=== PATIENT | female | born 1945 | race Caucasian/White ===

== ENCOUNTER 2023-11-30 14:39 | Outpatient (REF) | payer MEDICARE, MEDICAID, SELFPAY ==
[2023-11-30 18:03] LABS: MANUAL DIFF FLAG NO
[2023-11-30 18:09] LABS: Basophils Absolute Auto 0.1 X10*3/uL (0.0-0.2); Basophils Percent Auto 0.7 % (0-2); Eosinophils Absolute Auto 0.2 X10*3/uL (0.0-0.4); Hematocrit 36.9 % (37.0-47.0); Hemoglobin 11.9 g/dl (12.0-16.0); Imm Gran Abs Auto 0.02 X10*3/uL (0.00-0.03); Imm Gran Pct Auto 0.3 % (0.0-0.4); Lymphocytes Absolute Auto 1.7 X10*3/uL (1.2-4.9); Lymphocytes Percent Auto 22.2 % (20-40); Mean Corpuscular HGB Conc 32.2 g/dl (31.0-35.0); Mean Corpuscular Hemoglobin 28.5 pg (27.0-33.0); Mean Corpuscular Volume 88.3 fL (80.0-98.0); Mean Platelet Volume 10.7 fL (9.4-12.3); Monocytes Absolute Auto 0.8 X10*3/uL (0.1-1.2); Monocytes Percent Auto 10.9 % (2-11); Neutrophils Absolute Auto 4.9 x10*3/uL (2.0-8.3); Neutrophils Percent Auto 63.9 % (45-73); Platelet Count 386 X10*3/uL (160-400); Red Blood Count 4.18 X10*6/uL (4.20-5.50); Red Cell Distribution Width 14.6 % (11.0-16.0); White Blood Count 7.6 X10*3/uL (4.8-10.8)
[2023-11-30 18:26] LABS: Alanine Aminotransferase 17 U/L (0-31); Albumin Level 4.3 g/dL (3.5-5.0); Alkaline Phosphatase 135 U/L (39-117); Anion Gap 14 (12-20); Aspartate Amino Transferase 25 U/L (5-31); Bilirubin Direct 0.1 mg/dL (0.0-0.5); Bilirubin Total 0.3 mg/dL (0.0-1.0); Blood Urea Nitrogen 24 mg/dL (9-16); Calcium 9.8 mg/dL (8.4-10.2); Carbon Dioxide 25 mmol/L (22-29); Chloride 106 mmol/L (96-108); Cholesterol 163 mg/dL (<200); Estimated Glomerular Filt Rate 42; Glucose Fasting 81 mg/dL (60-99); HDL Cholesterol 43 mg/dL (>40); LDL Cholesterol Calculated 86 mg/dL (<100); Potassium 3.9 mmol/L (3.3-5.1); Sodium 141 mmol/L (135-145); Total Protein 7.5 g/dL (6.5-8.0); Triglycerides 174 mg/dL (<150)
[2023-11-30 18:41] LABS: TSH reflex Free T4 0.04 uIU/mL (0.32-4.0); Vitamin D 25-OH Total 34.4 ng/mL (>30)
[2023-11-30 18:48] LABS: Erythrocyte Sedimentation Rate 38 MM/HR (0-20)
[2023-11-30 19:15] LABS: Free T4 (Free Thyroxine) 1.44 ng/dL (0.71-1.85)
[2023-11-30 19:58] LABS: Appearance Urine Clear; Color Urine Yellow; Glucose Urine UA Negative (Negative); Leukocyte Esterase Urine Trace (Negative); Nitrite Urine Negative (Negative); Specific Gravity - Urine 1.025 (1.005-1.025); UMIC TRIGGER UACC YES; Urine Blood Negative (Negative); Urine Ketones Trace mg/dL (Negative); Urine Protein Negative (Neg-Trace)
[2023-11-30 20:31] LABS: Creatinine Urine 236.71 mg/dL; Microalbum/Creatinine Ratio Ur 4.6 ug/mg cr (<30)
[2023-11-30 20:34] LABS: Bacteria Urine None Seen (None Seen); Hyaline Casts Urine 0-2 /LPF (0-2); RBC Urine 0-2 /HPF (0-2); WBC Urine 0-5 /HPF (0-5)
== END 2023-11-30 14:40 | disposition home or self-care (01) ==
LOC: HO.CHCLDS 14:39
PROVIDERS: Visit Provider Pediatrics
DX: E78.2 Mixed hyperlipidemia (principal); M85.80 Other specified disorders of bone density and structure, unspecified site
CPT/HCPCS: 36415; 80048; 80061; 80076; 81001; 81003; 82043; 82306; 82550; 82570; 84439; 84443; 85025; 85652

== ENCOUNTER 2024-10-08 14:51 | Outpatient (REF) | payer MEDICARE, MEDICAID, SELFPAY ==
[2024-10-08 18:26] LABS: Anion Gap 11 (12-20); Blood Urea Nitrogen 18 mg/dL (9-16); Calcium 9.3 mg/dL (8.4-10.2); Carbon Dioxide 23 mmol/L (22-29); Chloride 112 mmol/L (96-108); Estimated Glomerular Filt Rate 32; Glucose Random 75 mg/dL (60-115); Potassium 4.3 mmol/L (3.3-5.1); Sodium 142 mmol/L (135-145)
== END 2024-10-08 14:52 | disposition home or self-care (01) ==
LOC: HO.CHCLDS 14:51
PROVIDERS: Visit Provider Internal Medicine
DX: N17.9 Acute kidney failure, unspecified (principal)
CPT/HCPCS: 36415; 80048

== ENCOUNTER 2024-11-05 09:26 | Outpatient (REF) | payer MEDICARE, MEDICAID, SELFPAY ==
--- OUTSIDE RECORDS SUMMARY | 2024-11-05 10:18 | XMS_ITS | Encounter Summary ---
Author Organization [employer] Address [address] [facility] [address] [place] [address] Care Team Providers Care Shoulder Pad Molder Name Role Phone Jessica Gonzalez MD Primary Care Provider [phone] Reason for Visit * Reason Onset Date Comments Appointment Request 10/17/2024 Encounter Details Date Type Department Care Team (Late st Contact Info) Description 10/17/2024 Telephone [facility] [address] [place] [address] Jessica Gonzalez MD [address] [place], [place] [phone] Appointment Request Social History Tobacco Use Types Packs/Day Years Used Date Smoking Tobacco: Never Passive Smoke Exposure: Never Smokeless Tobacco: Never Depression Answer Date Recorded Patient Health Questionnaire-9 Score 0 10/08/2024 Patient Health Questionnaire-9 Score 0 10/08/2024 Last PHQ-9: Questionnaire Data Not on file 0 10/08/2024 Housing Stability Answer Date Recorded What is your housing situation today? I have israel martin 10/08/[address] you li ve. Do you have problems with any of the following? None of the above 10/08/2024 Food Insecurity Answer Date Recorded Within the past 12 months, y ou worried that your food would run out before you got money to buy more: Never True 10/08/2024 Within the past 12 months,th e food you bought just didn't last and you didn't have enough money to get more: Never True Transportation Answer Date Recorded In the past 12 months, has l ack of transportation kept you from medical appts, meetings, work or from getting things needed for daily living? No 10/08/2024 Utilities Answer Date Recorded In the past 12 months, has t he electric, gas, oil or water company threatened to shut off services in your home? No 10/08/2024 Depression Answer Date Recorded Patient Health Questionnaire-2 Score 0 10/08/2024 Internet Access Answer Date Recorded Internet Access Q1 Yes 10/08/2024 Internet Access Q2 Not on file 10/08/2024 Comments Unknown Sex and Gender Information Value Date Recorded Sex Assigned at Female 05/16/2022 10:18 AM EDT Legal Sex Female 10:18 AM EDT Gender Identity Female 05/16/2022 10:18 AM EDT Sexual Orientation Choose not to disclose 2021 10:18 AM EDT documented as of this encounter Miscellaneous Notes * Telephone Encounter - Ko Snowden - 10/17/2024 2:13 PM EDT TC from pt requesting a appt with PCP to discuss Ultra Sound done on her kidney. Contact pt at [phone] documented in this encounter Plan of Treatment Upcoming Encounters Date Type Department Care Team (Late st Contact Info) Description 12/19/2024 11:00 AM EDT Office Visit [facility]EDS [address] [place] [address] Jessica Gonzalez MD [address] [place] [address] documented as of this encounter Visit Diagnoses Not on filedocumented in this encounter Additional Health Concerns Assessment Noted Time PHQ-9 Depression Total Score: 0 10/09/19 2:16 PM EDT documented as of this encounter Care Teams Shoulder Pad Molder Relationship Specialty Start Date End Date Jessica Gonzalez MD [address] [place] [address] PCP - General Family Medicine 07/17/18 documented as of this encounter
--- OUTSIDE RECORDS SUMMARY | 2024-11-05 10:18 | XMS_ITS | Encounter Summary ---
Author Organization [employer] Address [address] [facility] [address] [place] [address] Care Team Providers Care Cnp Name Role Phone Jessica Gonzalez MD Primary Care Provider [phone] Encounter Details Date Type Department Care Team (Late st Contact Info) Description 10/16/2024 Orders Only [facility] [address] [place] [address] ProviderCesar MD Social History Tobacco Use Types Packs/Day Years [...] AM EDT documented as of this encounter Plan of Treatment Upcoming Encounters Date Type Department Care Team (Late st Contact Info) Description 12/19/2024 11:00 AM EDT Office Visit [facility] MED & PEDS [address] [place] [address] Jessica Gonzalez MD [address] [place] [address] documented as of this encounter Procedures Procedure Name Priority Date/Time Associated Diagnosis Comments US RETROPERITONEAL LIMITED Routine 10/15 9:20 AM EDT documented in this encounter Results * US RETROPERITONEAL LIMITED (10/15/2024 9:20 AM EDT) Anatomical Region Laterality Modality Abdomen Ultrasound us Historical Provider MD BARROSO US PROCEDURES Final R esult documented in this encounter Visit Diagnoses Not on filedocumented in this encounter Additional Health Concerns Assessment Noted Time PHQ-9 Depression Total Score: 0 10/09/19 25 2:16 PM EDT documented as of this encounter Care Teams Cnp Relationship Specialty Start Date End Date Jessica Gonzalez MD [address] [place] [address] PCP - General Family Medicine 07/17/18 documented as of this encounter
--- OUTSIDE RECORDS SUMMARY | 2024-11-05 10:19 | XMS_ITS | Encounter Summary ---
Author Organization [employer] Address [address] [place] [address] Care Team Providers Care Bakery Clerk Name Role Phone Jessica Gonzalez MD Primary Care Provider [phone] Reason for Visit * Reason Comments Med Refill Encounter Details Date Type Department Care Team ([facility] Contact Info) Description 06/11/2023 Refill [facility] MED & PEDS [address] [place] [address] Jessica Gonzalez MD [address] [place] [address] Mixed hyperlipidemia Social History Tobacco Use Types Packs/Day Years Used Date Smoking Tobacco: Never Smokeless Tobacco: Never Comments Unknown Sex and Gender Information Value Date Recorded Sex Assigned at Female 05/16/2022 10:18 AM EDT Legal Sex Female 10:18 AM EDT Gender Identity Female 05/16/2022 10:18 AM EDT Sexual Orientation Choose not to disclose 2021 10:18 AM EDT documented as of this encounter Plan of Treatment Upcoming Encounters Date Type Department Care Team (Late Contact Info) Description 12/19/2024 11:00 AM EDT Office Visit [facility] MED & PEDS [address] [place] [address] Jessica Gonzalez MD [address] [place] [address] documented as of this encounter Visit Diagnoses Diagnosis Mixed hyperlipidemia documented in this encounter Care Teams Bakery Clerk Relationship Specialty Start Date End Date Jessica Gonzalez MD [address] [place] [address] PCP - General Family Medicine 07/17/18 documented as of this encounter
--- OUTSIDE RECORDS SUMMARY | 2024-11-05 10:19 | XMS_ITS | Encounter Summary ---
Author Organization [employer] Address [address] [place] [address] Care Team Providers Care Cytotechnologist/Histotechnologist Name Role Phone Jessica Gonzalez MD Primary Care Provider [phone] Encounter Details Date Type Department Care Team (Late Contact Info) Description 09/27/2024 [facility] Only [facility] Information Management [address] [place], [place] [phone] Provider, MD Cesar Social History Tobacco Use Types Packs/Day Years Used Date Smoking Tobacco: Never Passive Smoke Exposure: Never Smokeless Tobacco: Never Depression Answer Date Recorded Patient Health Questionnaire-9 Score 1 11/30/2023 Patient Health Questionnaire-9 Score 1 11/30/2023 Last PHQ-9: Questionnaire Data Not on file 0 11/30/2023 Depression Answer Date Recorded Patient Health Questionnaire-2 Score 0 11/30/2023 Comments Unknown Sex and Gender Information Value [...] Description 12/19/2024 11:00 AM EDT Office Visit [facility] MED & PEDS [address] [place], [place] [phone] Jessica Gonzalez MD [address] [place], [place] [phone] documented as of this encounter Procedures Procedure Name Priority Date/Time Associated Diagnosis Comments TRANSTHORACIC ECHO (TTE) COMPLETE Routine 09/26/2024 1:37 PM EDT ECG 12-LEAD Routine 09/26/2024 1:15 PM EDT documented in this encounter Results * Transthoracic echo (TTE) complete (09/26/2024 1:37 PM EDT) Historical Provider CV ECHO PROCEDURES Final Result * ECG 12 lead (09/26/2024 1:15 PM EDT) Historical Provider ECG ORDERABLES Final Res ult documented in this encounter Visit Diagnoses Not on filedocumented in this encounter Additional Health Concerns Assessment Noted Time PHQ-9 Depression Total Score: 1 11/30/19 24 2:28 PM EDT documented as of this encounter Care Teams Cytotechnologist/Histotechnologist Relationship Specialty Start Date End Date Jessica Gonzalez MD [address] [place] [address] PCP - General Family Medicine 07/17/18 documented as of this encounter
--- OUTSIDE RECORDS SUMMARY | 2024-11-05 10:19 | XMS_ITS | Encounter Summary ---
Author Organization [employer] Address [address] [facility] [address], [place] [address] Care Team Providers Care Farm Management Agent Name Role Phone Jessica Gonzalez MD Primary Care Provider [phone] Reason for Referral * Imaging (Routine) - Closed Specialty Diagnoses / Procedures Referred By Contjanelle t Referred To Contact Radiology Diagnoses Decreased GFR Procedures US RENAL BI Julian Allen MD [address] [place] [address] Phone: tel: fax: [address] Phone: tel: fax: Referral ID Status Reason Start Date Expiration Date Visits Re quested Visits Authorized [id number] Closed 10/10/2024 10/10/2025 1 1 Encounter Details Date Type Department Care Team (Late st Contact Info) Description 10/10/2024 Orders Only [facility] MEDICINE [address] [place], [place] [phone] Julian Allen MD [address] [place], [place] [phone] Decreased GFR (Primary Dx) Social History Tobacco Use Types Packs/Day Years [...] Upcoming Encounters Date Type Department Care Team ([facility] Contact Info) Description 12/19/2024 11:00 AM EDT Office Visit [facility] MED & PEDS [address] [place] [address] Jessica Gonzalez MD [address] [place] [address] Scheduled Orders Name Type Priority Associated Diagnoses Orde r Schedule US RENAL BI Imaging Routine Decreased GFR Expected: 10/10/2024, Expires: 10/10/2025 Basic Metabolic Panel Lab Routine Decreased GFR Expected: 10/10/2024 (Approximate), Expires: 10/10/2025 documented as of this encounter Visit Diagnoses Diagnosis Decreased GFR- Primary documented in this encounter Additional Health Concerns Assessment Noted Time PHQ-9 Depression Total Score: 0 10/09/19 25 2:16 PM EDT documented as of this encounter Care Teams Farm Management Agent Relationship Specialty Start Date End Date Jessica Gonzalez MD [address] [place] [address] PCP - General Family Medicine 07/17/18 documented as of this encounter
--- OUTSIDE RECORDS SUMMARY | 2024-11-05 10:19 | XMS_ITS | Encounter Summary ---
Author Organization [employer] Address [address] [facility] [address], [place] [address] Care Team Providers Care Feed Mill Manager Name Role Phone Jessica Gonzalez MD Primary Care Provider [phone] Encounter Details Date Type Department Care Team (Late st Contact Info) Description 03/13/2023 Orders Only [facility] MED & PEDS [address] [place] [address] Lizabeth Armstrong LPN Social History Tobacco Use Types Packs/Day Years [...] 11:00 AM EDT Office Visit [facility] MED & PEDS [address] [place] [address] Jessica Gonzalez MD [address] [place] [address] documented as of this encounter Procedures Procedure Name Priority Date/Time Associated Diagnosis Comments URINALYSIS, COMPLETE, WITH REFLEX TO CULTURE Routine 11/30/2023 2:50 PM EDT T4, FREE Routine 11/30/2023 2:43 PM EDT documented in this encounter Results * (ABNORMAL) Urinalysis, Complete, with Reflex to Culture (11/30/2023 2:50 PM EDT) Color Urine Yellow [facility] Appearance Urine Clear [facility] PH 5.0 5.0 - 9.0 [facility] Glucose Urine UA Negative Negative mg/dL [facility] Urine Blood Negative Negative [facility] Specific Bartelso - Urine 1.025 1.005 - 1.025 [facility] Urine Protein Negative Neg-Trace mg/dL [facility] Urine Ketones Trace Negative mg/dL [facility] Nitrite Urine Negative Negative [facility] Leukocyte Esterase Urine Trace(A) Negative [facility] RBC Urine 0-2 0 - 2 /HPF [facility] Urine WBC 0-5 0 - 5 /HPF [facility] Urine Squamous Epithelial Cell 3-5 0 - 2 /HPF [facility] Urine Bacteria None Seen None Seen [facility] Hyaline Casts, Urine 0-2 0 - 2 /LPF [facility] 11/30/2023 2:50 PM EDT 11/30/2023 7:49 PM EDT Narrative [facility] - 11/30/2023 8:35 PM EDT [id number], Clean Catch Jessica Gonzalez MD LAB URINE ORDERABLES Final Re sult Performing Organization Address [facility]/ZIP Co de Phone Number [facility] [address] [place] [phone] * T4, Free (11/30/2023 2:43 PM EDT) Free T4 (Free Thyroxine) 1.44 0.71 - 1.85 ng/dL [facility] 11/30/2023 2:43 PM EDT 11/30/2023 5:58 PM EDT Jessica Gonzalez MD LAB BLOOD ORDERABLES Final Re sult [facility] [address] [place] [address] [phone] documented in this encounter Visit Diagnoses Not on filedocumented in this encounter Care Teams Feed Mill Manager Relationship Specialty Start Date End Date Jessica Gonzalez MD [address] [place] [phone] PCP - General Family Medicine 07/17/18 documented as of this encounter
--- OUTSIDE RECORDS SUMMARY | 2024-11-05 10:19 | XMS_ITS | Encounter Summary ---
Author Organization [employer] Address [address] [place] [address] Care Team Providers Care House Mover Helper Name Role Phone Jessica Gonzalez MD Primary Care Provider [phone] Encounter Details Date Type Department Care Team (Late Contact Info) Description 09/25/2024 [facility] Only [facility] Information Management [address] [place], [place] [phone] Provider, MD Cesar Social History Tobacco Use [...] Description 12/19/2024 11:00 AM EDT Office Visit [facility] MED & PEDS [address] [place], [place] [phone] Jessica Gonzalez MD [address] [place], [place] [phone] documented as of this encounter Procedures Procedure Name Priority Date/Time Associated Diagnosis Comments XR CHEST 2 VIEWS Routine 09/23/2024 12:44 PM EDT ECG 12-LEAD Routine 09/23/2024 11:02 AM EDT documented in this encounter Results * XR Chest 2 Views (09/23/2024 12:44 PM EDT) Anatomical Region Laterality Modality Chest Radiographic Lilliam ging us Historical Provider IMG XR PROCEDURES Final R esult * ECG 12 lead (09/23/2024 11:02 AM EDT) Historical Provider ECG ORDERABLES Final Res ult documented in this encounter Visit Diagnoses Not on filedocumented in this encounter Additional Health Concerns Assessment Noted Time PHQ-9 Depression Total Score: 1 11/30/19 24 2:28 PM EDT documented as of this encounter Care Teams House Mover Helper Relationship Specialty Start Date End Date Jessica Gonzalez MD [address] [place] [address] PCP - General Family Medicine 07/17/18 documented as of this encounter
--- OUTSIDE RECORDS SUMMARY | 2024-11-05 10:19 | XMS_ITS | Encounter Summary ---
Author Organization [employer] Address [address] [facility] [address] [place] [address] Care Team Providers Care Director Of Catering Sales Name Role Phone Jessica Gonzalez MD Primary Care Provider [phone] Reason for Visit * Reason Onset Date Comments Hospital Follow-up 09/30/2024 Encounter Details Date Type Department Care Team (Late st Contact Info) Description 09/30/[address] [facility] MEDICINE [address] [place] [address] Jessica Gonzalez MD [address] [place], [place] [phone] Hospital Follow-up Social History Tobacco Use Types Packs/Day Years [...] encounter Miscellaneous Notes * Telephone Encounter - Pino Louise - 09/30/2024 11:25 AM EDT Tc from pt requesting a HDF appt. Hospital: [facility] Date of admission: 09/25/2024 Discharge date: 09/28/2024 Diagnosed: Pneumonia *Send message to [facility] [place] Clinical Care Coordinators documented in this encounter Plan of Treatment Upcoming Encounters Date Type Department Care Team ([facility] st Contact Info) Description 12/19/2024 11:00 AM EDT Office Visit [facility] MED & PEDS [address] [place] [address] Jessica Gonzalez MD [address] [place] [address] documented as of this encounter Visit Diagnoses Not on filedocumented in this encounter Additional Health Concerns Assessment Noted Time PHQ-9 Depression Total Score: 1 11/30/19 24 2:28 PM EDT documented as of this encounter Care Teams Director Of Catering Sales Relationship Specialty Start Date End Date Jessica Gonzalez MD [address] [place] [address] PCP - General Family Medicine 07/17/18 documented as of this encounter
--- OUTSIDE RECORDS SUMMARY | 2024-11-05 10:19 | XMS_ITS | Clinical Summary ---
Author Organization [facility] Address [address] [phone] Phone Care Team Providers Care Power Transformer Repairer Name Role Phone Jessica Gonzalez MD Primary Care Provider Unav ailable Social History Tobacco Use Types Packs/Day Years Used Date Smoking Tobacco: Never Assessed Comments Unknown Sex and Gender Information Value Date Recorded Sex Assigned at Not on file Legal Sex Female 1:20 PM EDT Gender Identity Not on file Sexual Orientation Not on file Plan of Treatment Upcoming Encounters Date Type Department Care Team (Late st Contact Info) Description 12/20/2024 10:00 AM EDT Office Visit [facility] [address] [phone] Jarad Reina MD [address] [phone] Health Maintenance Due Date Last Done Comments Pneumococcal Vaccine: 50+ Years Completed 05/13/2015, 12/12/2012 Influenza Vaccine Completed 05/03/2024, , 06/04/2022, Additional history exists Hepatitis B Vaccine Aged Out No longe r eligible based on patient's age to complete this topic Insurance Medicare Medicaid [place] Care Teams Power Transformer Repairer Relationship Specialty Start Date End Date Jessica Gonzalez MD [address] [place] [phone] PCP - General Internal Medicine 10/28/24
--- OUTSIDE RECORDS SUMMARY | 2024-11-05 10:19 | XMS_ITS | Clinical Summary ---
Author Organization [facility] Address [address] [place] [address] Phone Care Team Providers Care Clinical Research Manager Name Role Phone Jessica Gonzalez MD Primary Care Provider [phone] Allergies Active Allergy Reactions Criticality Noted Date Comments Atorvastatin Hives Medium 09/24/2024 Medications aspirin 325 mg tablet Take 1 tablet (325 mg total) by mouth 1 (one) time each day. Active levothyroxine (SYNTHROID, LEVOTHROID) 75 mcg tablet Take 1 tablet (75 mcg total) by mouth 1 (one) time each day. 5 Active PARoxetine (PAXIL) 20 mg tablet Take 1 tablet (20 mg total) by mouth 1 (one) time each day. Active simvastatin (ZOCOR) 40 mg tablet Take 1 tablet (40 mg total) by mouth at bedtime. Active albuterol HFA (PROAIR HFA ; PROVENTIL HFA ; VENTOLIN HFA) 90 mcg/actuation inhaler Inhale 2 puffs by mouth every 6 (six) hours if needed for wheezing or shortness of breath. Active lisinopriL (PRINIVIL,ZESTR IL) 10 mg tablet Take 1 tablet (10 mg total) by mouth 1 (one) time each day. 30 each 5 Active acetaminophen (TYLENOL) 325 mg tablet Take 2 tablets (650 mg total) by mouth every 4 (four) hours if needed for mild pain, headaches or fever - temperature GREATER than 38 C (100.4 F) for up to 10 days. 30 tablet 5 10/09/19 25 Active Problems Problem Noted Date Diagnosed Date Pneumonia of right lung due to infectious organism, unspecified part of lung 09/24/2024 Encounters Date Type Department Care Team Description 10/15/2024 3:58 PM EDT - 10/15/2024 11:59 PM EDT Hospital Encounter Radiology Department - [address] [address] Abnormal results of kidney function studies Discharge Disposition: Home or Self Care 09/23/2024 7:28 PM EDT - 09/28/2024 12:48 PM EDT Hospital Encounter [facility] [address] [place] [phone] Aryan Martinez MD Rasul, Yar M, MD Pneumonia of right lung due to infectious organism, unspecified part of lung (Primary Dx); Acute hypoxic respiratory failure ([facility] V24, [facility] V28) Discharge Disposition: Home or Self Care from Last 3 Months Medical History Medical History Date Comments Hypercholesteremia Hypertension Hypothyroidism Osteopenia Asthma Family History Medical History Relation Name Comments Lung cancer Father Alzheimer's disease Mother Relation Name Status Comments Father Mother Social History Tobacco Use Types Packs/Day Years Used Date Smoking Tobacco: Former Cigarettes 1 41 1 [phone] - 2005 Smokeless Tobacco: Never Alcohol Use Standard Drinks/Week Comments Not Currently 0 (1 standard drink = 0.6 oz pur e alcohol) Interpersonal Safety Answer Date Record ed Physical Abuse 09/24/2024 Verbal Abuse 09/24/2024 Comments Unknown Sex and Gender Information Value Date Recorded Sex Assigned at Not on file Legal Sex Female 7:25 PM EDT Gender Identity Not on file Sexual Orientation Not on file Obstetrics History Last Filed Vital Signs Vital Sign Reading Time Taken Comments Blood Pressure 127/64 09/28/2024 7:33 AM EDT Pulse 51 09/28/2024 7:33 AM EDT Temperature 36.5 ??C (97.7 ??F) 09/28/2024 7:33 AM ED T Respiratory Rate 18 09/28/2024 7:33 AM EDT Oxygen Saturation 99% 09/28/2024 7:33 AM EDT Inhaled Oxygen Concentration - - Weight 60.3 kg (132 lb 15 oz) 09/26/2024 4:20 PM EDT Height 147.3 cm (4' 10 ) 09/26/2024 4:20 PM EDT Body Mass Index 27.78 09/26/2024 4:20 PM EDT Plan of Treatment Health Maintenance Due Date Last Done Comments Zoster Vaccines (2 of 2) 06/13/2019 04/18/2019, 12/15 DTaP,Tdap,and Td Vaccines (3 - Td or Tdap) 02/26/2022 02/27/2012, 12/31/2000 COVID-19 Vaccine (4 - season) 2024 06/30/2023, 09/16/2020, 08/26/2020 Hepatitis C Screening 09/24/2024 Medicare Annual Wellness Visit 09/24/2024 Osteoporosis Screening (Bone Density Screening) 09/24/2024 Social Influencers of Health Screening 09/24/2024 Falls Risk Assessment 09/28/2025 09/28/2024 Depression Screening 10/08/2025 10/08/2024 Hypertension/CHF/CAD Annual BMP Blood Test 10/08/2025 10/08/2024, 09/28/2024, 09/27/2024, Additional history exists Cholesterol Screening (Lipid Panel) 11/29/2028 11/30/2023 Pneumococcal Vaccine: 50+ Years Completed 05/13/2015, 12/12/2012 Influenza Vaccine Completed 05/03/2024, , 06/04/2022, Additional history exists RSV Immunization Adult Patients Completed 05/03/2024 HIB Vaccines Aged Out No longer eligi ble based on patient's age to complete this topic HPV Vaccines Aged Out No longer eligi ble based on patient's age to complete this topic Hepatitis A Vaccines Aged Out No long er eligible based on patient's age to complete this topic Hepatitis B Vaccines Aged Out No long er eligible based on patient's age to complete this topic IPV Vaccines Aged Out No longer eligi ble based on patient's age to complete this topic MMR Vaccines Aged Out No longer eligi ble based on patient's age to complete this topic Meningococcal ACWY Vaccine Aged Out N o longer eligible based on patient's age to complete this topic Meningococcal B Vaccine Aged Out No l onger eligible based on patient's age to complete this topic RSV Immunization Patients Under 20 months Aged Out No longer eligible based on patient's age to complete this topic Varicella Vaccines Aged Out No longer eligible based on patient's age to complete this topic Procedures Procedure Name Priority Date/Time Associated Diagnosis Comments US RETROPERITONEAL LIMITED Routine 10/15/2024 4:34 PM EDT Abnormal results of kidney function studies ECG ANNOTATED 09/30/2024 LAVENDER - EDTA Routine 09/28/2024 5:49 AM EDT EXTRA TUBES Routine 09/28/2024 5:49 AM EDT MAGNESIUM Routine 09/28/2024 5:49 AM EDT BASIC METABOLIC PANEL Timed 09/28/2024 5:49 AM EDT CBC WITH AUTO DIFFERENTIAL Timed 09/27/2024 5:49 AM EDT BASIC METABOLIC PANEL Timed 09/27/2024 5:49 AM EDT CBC AND DIFFERENTIAL Timed 09/27/2024 5:49 AM EDT TRANSTHORACIC ECHOCARDIOGRAM (TTE) COMPLETE W/ CONTRAST Routine 09/26/2024 4:20 PM EDT Pneumonia of right lung due to infectious organism, unspecified part of lung ECG 12-LEAD Routine 09/26/2024 1:06 PM EDT PHOSPHORUS Add-On 09/26/2024 5:45 AM EDT MAGNESIUM Add-On 09/26/2024 5:45 AM EDT CBC WITH AUTO DIFFERENTIAL Timed 09/26/2024 5:45 AM EDT BASIC METABOLIC PANEL Timed 09/26/2024 5:45 AM EDT CBC AND DIFFERENTIAL Timed 09/26/2024 5:45 AM EDT PEP THERAPY Routine 09/25/2024 1:58 PM EDT CULTURE SPUTUM Routine 09/24/2024 7:54 AM EDT C-REACTIVE PROTEIN Add-On 09/24/2024 4: 56 AM EDT BASIC METABOLIC PANEL Routine 09/24/2024 4:56 AM EDT CBC WITH AUTO DIFFERENTIAL Routine 09/24/2024 4:55 AM EDT CBC AND DIFFERENTIAL Routine 09/24/2024 4:55 AM EDT PEP THERAPY Routine 09/24/2024 3:11 AM EDT CULTURE BLOOD STAT 09/23/2024 11:20 PM EDT LACTATE, WITH REFLEX STAT 09/23/2024 10:44 PM EDT CULTURE BLOOD STAT 09/23/2024 10:44 PM EDT XR CHEST 2 VIEWS STAT 09/23/2024 8:56 PM EDT RESPIRATORY VIRUS PANEL MOLECULAR STUDY STAT 09/23/2024 8:23 PM EDT CBC WITH AUTO DIFFERENTIAL STAT 09/23/2024 8:06 PM EDT BASIC METABOLIC PANEL STAT 09/23/2024 8:06 PM EDT CBC AND DIFFERENTIAL STAT 09/23/2024 8:06 PM EDT ECG 12-LEAD STAT 09/23/2024 7:44 PM EDT from Last 3 Months Results * US Retroperitoneal Limited (10/15/2024 4:34 PM EDT) Anatomical Region Laterality Modality Body Ultrasound 10/15/2024 4:47 PM EDT Impressions 10/15/2024 4:49 PM EDT Tiny echogenic nonshadowing focus in the right kidney which may represent an angiomyolipoma. Bladder is unable to be evaluated due to underdistention. -------- FINAL REPORT -------- Dictated By: Ivy Baires Dictated Date: 10/15/2024 16:47 ET Assigned Physician: Ivy Baires Reviewed and Electronically Signed By: Ivy Baires Signed Date: 10/15/2024 16:49 ET Workstation ID: [id number] Transcribed By: Self Edit Transcribed Date: 10/15/2024 16:47 ET Narrative 10/15/2024 4:49 PM EDT US RETROPERITONEAL LIMITED HISTORY: Decreased GFR. Prior study: None. FINDINGS: ??The right kidney measures 8.9 cm in length. The left kidney measures 9.6 cm in length. ??Both kidneys demonstrate normal echotexture. ??No hydronephrosis, masses, calculi, or perinephric collections are seen. There is a 0.5 x 0.4 x 0.5 cm echogenic nonshadowing focus in the cortex of the midpole the right kidney. The bladder is suboptimally distended. Normal ureteral jet was visualized in the right side of the bladder. No ureteral jet was visualized on the left side. Procedure Note Ivy Baires MD - 10/15/2024 US RETROPERITONEAL LIMITED HISTORY: Decreased GFR. Prior study: None. FINDINGS: The right kidney measures 8.9 cm in length. The left kidneymeasures 9.6 cm in length. Both kidneys demonstrate normal echotexture.No hydronephrosis, masses, calculi, or perinephric collections are seen. There is a 0.5 x 0.4 x 0.5 cm echogenic nonshadowing focus in the cortexof the midpole the right kidney. The bladder is suboptimally distended. Normal ureteral jet was visualizedin the right side of the bladder. No ureteral jet was visualized on theleft side. IMPRESSION: Tiny echogenic nonshadowing focus in the right kidney which may representan angiomyolipoma. Bladder is unable to be evaluated due to underdistention. -------- FINAL REPORT -------- Dictated By: Ivy Baires Dictated Date: 10/15/2024 16:47 ET Assigned Physician: Ivy Baires Reviewed and Electronically Signed By: Ivy Baires Signed Date: 10/15/2024 16:49 ET Workstation ID: [id number] Transcribed By: Self Edit Transcribed Date: 10/15/2024 16:47 ET us Julian Allen MD IMG US PROCEDURES Final R esult * ECG-Annotated (09/30/2024) us Provider Onbase ECG ORDERABLES Final Result * Lavender tube (09/28/2024 5:49 AM EDT) Extra Tube Hold for add-ons. 09/28/2024 8:01 AM EDT [facility] Comment:Auto resulted. Blood Venous blood specimen / Unknown Venipuncture / Unknown 09/28/2024 5:49 AM EDT 09/28/2024 6:03 AM EDT Tu Douglas MD LAB BLOOD ORDERABLES Final Resul t Performing Organization Address City/[facility]/ZIP Co de Phone Number [facility] [address] [place] [address], [place] [phone] * Magnesium (09/28/2024 5:49 AM EDT) Only the most recent of2 resultswithin the time period is included. Pathologist [facility] Magnesium 2.2 1.9 - 2.6 mg/dL LAB CHEMISTRY METHOD 09/28/2024 6:41 AM EDT [facility] Blood Venous blood specimen / Unknown Venipuncture / Unknown 09/28/2024 5:49 AM EDT 09/28/2024 6:02 AM EDT Tu Douglas MD LAB BLOOD ORDERABLES Final Resul t Performing Organization Address City/[facility]/ZIP Co de Phone Number [facility] [address] [place] [address], [place] [phone] * (ABNORMAL) Basic metabolic panel (09/28/2024 5:49 AM EDT) Only the most recent of5 resultswithin the time period is included. Sodium 144 133 - 145 mmol/L LAB CHEMISTRY METHOD 09/28/2024 6:41 AM [facility] Potassium 3.7 3.5 - 5.5 mmol/L LAB CHEMISTRY METHOD 09/28/2024 6:41 AM [facility] Chloride 113(H) 96 - 110 mmol/L LAB CHEMISTRY METHOD 09/28/2024 6:41 AM [facility] CO2 23 21 - 32 mmol/L LAB CHEMISTRY METHOD 09/28/2024 6:41 AM [facility] Anion Gap 8 3 - 11 LAB CHEMISTRY METHOD 09/28/2024 6:41 AM [facility] Glucose 93 70 - 100 mg/dL LAB CHEMISTRY METHOD 09/28/2024 6:41 AM [facility] BUN 22 5 - 25 mg/dL LAB CHEMISTRY METHOD 09/28/2024 6:41 AM [facility] Creatinine 1.03 0.50 - 1.10 mg/dL LAB CHEMISTRY METHOD 09/28/2024 6:41 AM [facility] eGFR 55(L) >=60 mL/min/1. 73m2 LAB CHEMISTRY METHOD 09/28/2024 6:41 AM [facility] Comment:Calculation based on the??Chronic Kidney Disease Epidemiology Collaboration (CKD-EPI) equation refit??without adjustment for race. BUN/Creatinine Ratio 21.4 LAB CHEMISTRY METHOD 09/28/2024 6:41 AM [facility] Calcium 8.5 8.5 - 10.5 mg/dL LAB CHEMISTRY METHOD 09/28/2024 6:41 AM [facility] Blood Venous blood specimen / Unknown Venipuncture / Unknown 09/28/2024 5:49 AM EDT 09/28/2024 6:02 AM EDT us Tu Douglas MD LAB BLOOD ORDERABLES Final Resul t [facility] [address] [place] [address], * (ABNORMAL) CBC auto differential (09/27/2024 5:49 AM EDT) Only the most recent of4 resultswithin the time period is included. WBC 7.8 4.8 - 10.8 K/mcL LAB HEMETOLOGY METHOD 09/27/2024 6:33 AM EDT [facility] RBC 3.90 3.80 - 4.80 M/mcL LAB HEMETOLOGY METHOD 09/27/2024 6:33 AM EDT [facility] Hemoglobin 11.0(L) 11.5 - 16.0 g/dL LAB HEMETOLOGY METHOD 09/27/2024 6:33 AM [facility] Hematocrit 34.0(L) 35.0 - 47.0 % LAB HEMETOLOGY METHOD 09/27/2024 6:33 AM [facility] MCV 88.3 79.0 - 98.0 FL LAB HEMETOLOGY METHOD 09/27/2024 6:33 AM EDT [facility] MCH 28.6 27.0 - 32.0 pcg LAB HEMETOLOGY METHOD 09/27/2024 6:33 [facility] MCHC 32.4 32.0 - 37.0 g/dL LAB HEMETOLOGY METHOD 09/27/2024 6:33 AM [facility] RDW 12.9 11.0 - 15.0 % LAB HEMETOLOGY METHOD 09/27/2024 6:33 AM EDT [facility] Platelets 409(H) 130 - 400 K/mcL LAB HEMETOLOGY METHOD 09/27/2024 6:33 [facility] MPV 9.3 7.0 - 11.0 FL LAB HEMETOLOGY METHOD 09/27/2024 6:33 AM [facility] NRBC 0.0 <1.0 % LAB HEMETOLOGY METHOD 09/27/2024 6:33 AM [facility] NRBC Absolute 0.00 <0.10 K/mcL LAB HEMETOLOGY METHOD 09/27/2024 6:33 AM [facility] Neutrophils Relative 69.8 % LAB HEMETOLOGY METHOD 09/27/2024 6:33 AM [facility] Lymphocytes Relative 19.9 % LAB HEMETOLOGY METHOD 09/27/2024 6:33 AM [facility] Monocytes Relative 8.3 % LAB HEMETOLOGY METHOD 09/27/2024 6:33 AM [facility] Eosinophils Relative 0.0 % LAB HEMETOLOGY METHOD 09/27/2024 6:33 AM [facility] Basophils Relative 0.5 % LAB HEMETOLOGY METHOD 09/27/2024 6:33 AM [facility] Immature Granulocytes Relative 1.5 % LAB HEMETOLOGY METHOD 09/27/2024 6:33 AM [facility] Neutrophils Absolute 5.41 1.50 - 7.00 K/mcL LAB HEMETOLOGY METHOD 09/27/2024 6:33 AM [facility] Lymphocytes Absolute 1.54 1.00 - 5.00 K/mcL LAB HEMETOLOGY METHOD 09/27/2024 6:33 AM [facility] Monocytes Absolute 0.64 0.20 - 1.00 K/mcL LAB HEMETOLOGY METHOD 09/27/2024 6:33 AM [facility] Eosinophils Absolute 0.00 0.00 - 0.50 K/mcL LAB HEMETOLOGY METHOD 09/27/2024 6:33 AM EDT [facility] Basophils Absolute 0.04 0.00 - 0.20 K/mcL LAB HEMETOLOGY METHOD 09/27/2024 6:33 AM EDT [facility] Immature Granulocytes Absolute 0.12(H) 0.00 - 0.03 K/mcL LAB HEMETOLOGY METHOD 09/27/2024 6:33 AM EDT [facility] Blood Venous blood specimen / Unknown Venipuncture / Unknown 09/27/2024 5:49 AM EDT 09/27/2024 6:23 AM EDT us Tu Douglas MD LAB BLOOD ORDERABLES Final Resul t Performing Organization Address City/State/[facility] Co de Phone Number [facility] [address] [place] [address], [place] [phone] * TRANSTHORACIC ECHOCARDIOGRAM (TTE) COMPLETE W/ CONTRAST (09/26/2024 4:20 PM EDT) LV EDV (A2C) 87 mL CV PACS LV EDV (A4C) 84 mL CV PACS LV Diastolic Volume (BP) 87 46 - 106 mL CV PACS LV ESV (A2C) 31 mL CV PACS LV ESV (A4C) 29 mL CV PACS LV Systolic Volume (BP) 31 14 - 42 mL CV PACS IVSD 0.8 0.6 - 0.9 cm CV PACS LVIDD 4.2 3.8 - 5.2 cm CV PACS LVIDS 2.8 2.2 - 3.5 cm CV PACS LVOT Diameter 2.1 cm CV PACS LVOT Mean Jeff 0.6 m/s CV PACS LVOT Mean Grad 2 mmHg CV PACS LVOT Peak VTI 24.9 cm CV PACS LVOT Peak Jeff 0.9 m/s CV PACS LVOT Peak Gradient 3 mmHg CV PACS LVPWD 0.9 0.6 - 0.9 cm CV PACS MV E' Tissue Velocity Lateral 10 cm/s CV PACS MV E' Tissue Velocity Septal 8 cm/s CV PACS Ejection Fraction (A2C) 65 % CV PACS Ejection Fraction (A4C) 65 % CV PACS Ejection Fraction (BP) 64 % CV PACS LVOT Area 3.5 cm2 CV PACS LVOT Stroke Volume 86 mL CV PACS Left Atrium Minor Davidson 5.1 cm CV PACS Left Atrium Major Davidson 5.1 cm CV PACS LA Area Sys (A2C) 19 cm2 CV PACS LA Area Sys (A4C) 18 cm2 CV PACS LA Volume (BP) 53 mL CV PACS RA Area 11.4 cm2 CV PACS RA 2D Volume 25 mL CV PACS Aortic Sinus Valsalva 2.7 cm CV PACS Ascending Aorta 3.3 cm CV PACS E Wave Deceleration Time 162 119 - 242 ms CV PACS MV Peak A Jeff 0.80 m/s CV PACS MV Peak E Jeff 0.97 m/s CV PACS PV Acceleration Time 99 ms CV PACS RV Diastolic Basal Dimension 3.8 2.5 - 4.1 cm CV PACS RV S' 10 cm/s CV PACS RV Free Wall Longitudinal Strain -30 % CV PACS TAPSE 21 mm CV PACS TR Peak Velocity 2.63 m/s CV PACS TR Peak Gradient 28 mmHg CV PACS LV ESV Index (A4C) 19 mL/m2 CV PACS LV EDV Index (A4C) 55 mL/m2 CV PACS E/E' Ratio Septal 12 CV PACS E/E' Ratio Averaged 11 CV PACS LVOT Stroke Index 56 mL/m2 CV PACS Relative Wall Thickness ratio 0.43 CV PACS FS 33 % CV PACS LV Mass 2D 110 g CV PACS Ascending Aorta Index 2.16 cm/m2 CV PACS LVOT flow 208 mL/s CV PACS RA 2D Volume Index 16 mL/m2 CV PACS LVIDD Index 2.75 cm/m2 CV PACS LVIDS Index 1.83 cm/m2 CV PACS E/A Ratio 1.2 CV PACS E/E' Ratio Lateral 10 CV PACS LV Systolic Volume Index (BP) 20 mL/m2 CV PACS LV Diastolic Volume Index (BP) 57 mL/m2 CV PACS LA Volume Index (BP) 35 mL/m2 CV PACS LV Mass Index 2D 72 g/m2 CV PACS LV EDV Index (A2C) 57 mL/m2 CV PACS LV ESV Index (A2C) 20 mL/m2 CV PACS BSA 1.57 m2 CV PACS Right Ventricular Peak Systolic Pressure 31 mmHg CV PACS Est. RA Pressure 3 mmHg CV PACS Anatomical Region Laterality Modality Ultrasound Narrative 09/26/2024 4:47 PM EDT ?Normal biventricular size and systolic function. ??Normal left ventricular regional wall motion with an ejection fraction of 60 to 65%. ?No hemodynamically significant valve disease. ??Minor valvular abnormalities as detailed below. ?Mild left atrial enlargement. ?Normal left ventricular diastolic function. ??Normal pulmonary artery systolic pressure. Left Ventricle Left ventricle cavity size is normal. Wall thickness is normal. Systolic function is normal with an ejection fraction of 60-65%. There are no regional LV wall motion abnormalities. There is no diastolic dysfunction and normal left atrial pressure. Right Ventricle Right ventricle cavity appears normal. Systolic function is normal. Left Atrium Left atrium cavity is mildly dilated. Right Atrium Right atrium cavity is normal. IVC/SVC Inferior vena cava structure is normal. Mitral Valve The leaflets are mildly thickened. There is mild annular calcification. There is mild regurgitation. There is no evidence of mitral valve stenosis. Tricuspid Valve The leaflets exhibit normal excursion. There is mild regurgitation. There is no evidence of tricuspid valve stenosis. Estimated RA pressure is 3 mmHg. The RVSP is estimated at 31 mmHg. Aortic Valve The aortic valve is trileaflet. The leaflets are mildly thickened and exhibit normal excursion. There is no regurgitation or stenosis. Pulmonic Valve Visualized portions of the pulmonic valve appear normal. There is no regurgitation or stenosis. Ascending Aorta The aorta appears normal in size. Pericardium Pericardium appears normal. There is no pericardial effusion. Study Details Overall the study quality was technically difficult. Definity contrast was given to enhance imaging. us Tu Douglas MD CV ECHO PROCEDURES Final Result * ECG 12 lead (09/26/2024 1:06 PM EDT) Only the most recent of2 resultswithin the time period is included. [facility] Ventricular Rate ECG 52 BPM GEMUSE Atrial Rate 52 BPM GEMUSE P-R Interval 144 ms GEMUSE QRS Duration 86 ms GEMUSE Q-T Interval 462 ms GEMUSE QTc 429 ms GEMUSE P Wave Davidson 34 degrees GEMUSE R Davidson 0 degrees GEMUSE T Davidson 18 degrees GEMUSE ECG Interpretation Sinus bradycardia Low voltage QRS Borderline ECG When compared with ECG of 23-SEP-2024 19:44, No significant change was found Confirmed by MD Jasmeet, [place] ([id number]) on 09/26/2024 10:44:45 PM GEMUSE 09/26/2024 1:06 PM EDT 09/26/2024 10:44 PM EDT us Tu Douglas MD ECG ORDERABLES Final Result Performing Organization Address [facility] de Phone Number GEMUSE * Phosphorus (09/26/2024 5:45 AM EDT) [facility] Phosphorus 2.7 2.5 - 4.5 mg/dL LAB CHEMISTRY METHOD 09/26/2024 10:41 AM EDT [facility] Blood Venous blood specimen / Unknown Venipuncture / Unknown 09/26/2024 5:45 AM EDT 09/26/2024 6:16 AM EDT us Tu Douglas MD LAB BLOOD ORDERABLES Final Resul t Performing Organization Address [facility] Co de Phone Number [facility] [address] [place] [address], [place] [phone] * (ABNORMAL) Culture sputum (09/24/2024 7:54 AM EDT) [facility] Culture, Sputum No pathogens isolated. 09/27/2024 8:03 AM EDT [facility] Gram Stain Result <25 WBCs, <25 Epithelials - Acceptable for Culture(A) 09/27/2024 8:03 AM EDT [facility] Gram Stain Result Few Polymorphonuclear leukocytes(A) 09/27/2024 8:03 AM EDT [facility] Gram Stain Result No Epithelial cells(A) 09/27/2024 8:03 AM EDT [facility] Gram Stain Result Few Gram positive bacilli(A) 09/27/2024 8:03 AM EDT [facility] Gram Stain Result Rare Gram positive cocci in pairs(A) 09/27/2024 8:03 AM EDT [facility] Sputum, expectorated Tracheal structure / Unknown 09/24/2024 7:54 AM EDT 09/24/2024 8:11 AM EDT Aryan Martinez MD LAB MICROBIOLOGY - GENERAL ORDERABLES Final Result Performing Organization Address City/[facility]/ZIP Co de Phone Number [facility] [address] [place] [address], [place] [phone] * (ABNORMAL) C-reactive protein (09/24/2024 4:56 AM EDT) [facility] C-Reactive Protein 11.20(H) <=0.50 mg/dL LAB CHEMISTRY METHOD 09/24/2024 9:02 AM EDT [facility] Blood Venous blood specimen / Unknown Venipuncture / Unknown 09/24/2024 4:56 AM EDT 09/24/2024 5:12 AM EDT Tu Douglas MD LAB BLOOD ORDERABLES Final Resul t [facility] [address] [place] [address], [place] [phone] * Blood Culture, Peripheral Draw #1 (09/23/2024 11:20 PM EDT) Only the most recent of2 resultswithin the time period is included. Culture, Blood No growth at 5 days 09/29/2024 12:01 AM EDT [facility] Blood Venous blood specimen / Unknown Venipuncture / Unknown 09/23/2024 11:20 PM EDT 09/23/2024 11:32 PM EDT Jessica COVARRUBIAS LAB MICROBIOLOGY - GENERAL OR DERABLES Final Result Performing Organization Address [facility] Co de Phone Number [facility] [address] [place] [address], [place] [phone] * Lactate, with reflex (09/23/2024 10:44 PM EDT) [facility] LACTIC ACID 2.0 0.4 - 2.0 mmol/L LAB CHEMISTRY METHOD 09/23/2024 11:12 PM EDT [facility] Blood Venous blood specimen / Unknown Venipuncture / Unknown 09/23/2024 10:44 PM EDT 09/23/2024 10:49 PM EDT Jessica COVARRUBIAS LAB BLOOD ORDERABLES Final Re sult Performing Organization Address [facility] de Phone Number [facility] [address] [place] [address], [place] [phone] * XR Chest 2 Views (09/23/2024 8:56 PM EDT) Anatomical Region Laterality Modality Body Radiographic Lilliam ging 09/24/2024 7:53 AM EDT Impressions 09/24/2024 7:55 AM EDT Double density in the lower mediastinum could be related to hiatal hernia. Diffuse reticular prominence. Subsegmental linear opacities in the lower lung on each side could represent fibrosis or atelectasis. I doubt acute focal pneumonia. -------- FINAL REPORT -------- Dictated By: Hernesto Rcie Dictated Date: 09/24/2024 07:53 ET Assigned Physician: Hernesto Rice Reviewed and Electronically Signed By: Hernesto Rice Signed Date: 09/24/2024 07:55 ET Workstation ID: [id number] Transcribed By: Self Edit Transcribed Date: 09/24/2024 07:53 ET Narrative 09/24/2024 7:55 AM EDT EXAMINATION: CHEST CLINICAL INFORMATION: Dyspnea COMPARISON: None. TECHNIQUE: 2 views of the chest FINDINGS: Calcified tortuous aorta. Smooth density in the lower mediastinum could be related to a hernia. Devices overlie the patient. There is no hilar mass. There is no alveolar edema. Scattered nonspecific reticular opacities. There are linear opacities in the posterior lower lung on each side. Biapical thickening without pneumothorax or underlying bone destruction. There are osteophytes in the spine Procedure Note Hernesto Rice MD - 09/24/2024 EXAMINATION: CHEST CLINICAL INFORMATION: Dyspnea COMPARISON: None. TECHNIQUE: 2 views of the chest FINDINGS: Calcified tortuous aorta. Smooth density in the lower mediastinum could berelated to a hernia. Devices overlie the patient. There is no hilar mass.There is no alveolar edema. Scattered nonspecific reticular opacities. There are linear opacities inthe posterior lower lung on each side. Biapical thickening without pneumothorax or underlying bone destruction. There are osteophytes in the spine IMPRESSION: Double density in the lower mediastinum could be related to hiatalhernia. Diffuse reticular prominence. Subsegmental linear opacities in the lower lung on each side couldrepresent fibrosis or atelectasis. I doubt acute focal pneumonia. -------- FINAL REPORT -------- Dictated By: Hernesto Rice Dictated Date: 09/24/2024 07:53 ET Assigned Physician: Hernesto Rice Reviewed and Electronically Signed By: Hernesto Rice Signed Date: 09/24/2024 07:55 ET Workstation ID: [id number] Transcribed By: Self Edit Transcribed Date: 09/24/2024 07:53 ET us Aryan Martinez MD IMG XR PROCEDURES Final Res ult * (ABNORMAL) Respiratory virus panel molecular study (09/23/2024 8:23 PM EDT) Adenovirus Detection by PCR Not Detected Not Detected LAB MICROBIOLOGY METHOD 09/23/2024 9:32 PM EDT [facility] Influenza A PCR Not Detected Not Detected LAB MICROBIOLOGY METHOD 09/23/2024 9:32 PM EDT [facility] Influenza B PCR Not Detected Not Detected LAB MICROBIOLOGY METHOD 09/23/2024 9:32 PM EDT [facility] Coronavirus 229E Not Detected Not Detected LAB MICROBIOLOGY METHOD 09/23/2024 9:32 PM EDT [facility] Coronavirus HKU1 Not Detected Not Detected LAB MICROBIOLOGY METHOD 09/23/2024 9:32 PM EDT [facility] Coronavirus OC43 Not Detected Not Detected LAB MICROBIOLOGY METHOD 09/23/2024 9:32 PM EDT [facility] Coronavirus NL63 Not Detected Not Detected LAB MICROBIOLOGY METHOD 09/23/2024 9:32 PM EDT [facility] Parainfluenza Virus 1 Not Detected Not Detected LAB MICROBIOLOGY METHOD 09/23/2024 9:32 PM EDT [facility] Parainfluenza Virus 2 Not Detected Not Detected LAB MICROBIOLOGY METHOD 09/23/2024 9:32 PM EDT [facility] Parainfluenza Virus 3 Not Detected Not Detected LAB MICROBIOLOGY METHOD 09/23/2024 9:32 PM EDT [facility] Parainfluenza Virus 4 Not Detected Not Detected LAB MICROBIOLOGY METHOD 09/23/2024 9:32 PM EDT [facility] RSV PCR Not Detected Not Detected LAB MICROBIOLOGY METHOD 09/23/2024 9:32 PM EDT [facility] Human Metapneumovirus A and B Not Detected Not Detected LAB MICROBIOLOGY METHOD 09/23/2024 9:32 PM EDT [facility] Rhinovirus/Entero virus Detected(A ) Not Detected LAB MICROBIOLOGY METHOD 09/23/2024 9:32 PM EDT [facility] Bordetella pertussis Not Detected Not Detected LAB MICROBIOLOGY METHOD 09/23/2024 9:32 PM EDT [facility] Bordetella parapertussis Not Detected Not Detected LAB MICROBIOLOGY METHOD 09/23/2024 9:32 PM EDT [facility] Mycoplasma pneumo by PCR Not Detected Not Detected LAB MICROBIOLOGY METHOD 09/23/2024 9:32 PM EDT [facility] Chlamydia pneumoniae Not Detected Not Detected LAB MICROBIOLOGY METHOD 09/23/2024 9:32 PM EDT [facility] SARS COV-2 Not Detected Not Detected LAB MICROBIOLOGY METHOD 09/23/2024 9:32 PM EDT [facility] Swab Both anterior nares / Unknown Non-blood Collection / Unknown 09/23/2024 8:23 PM EDT 09/23/2024 8:38 PM EDT Narrative [facility] - 09/23/2024 9:32 PM EDT Testing was performed using the [employer] Respiratory Pathogen PCR Assay. All results must be correlated with the clinical findings. Results should not be used as the sole basis for diagnosis. False Negative results may occur from the presence of sequence variants in the region targeted by the assay or the presence of inhibitors. Results may be affected by concurrent antiviral/antimicrobial therapy or levels of organisms that are below the limit of detection. 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 Do not modify or discontinue any currently active code status orders. Healthcare Agents on File Name Relationship Healthcare Agent Relationshi p Communication Ashley Lord Daughter Health Care Agent Care Teams Clinical Research Manager Relationship Specialty Start Date End Date Jessica Gonzalez MD [address] [place] [phone] PCP - General Internal Medicine 09/23/24
--- OUTSIDE RECORDS SUMMARY | 2024-11-05 10:19 | XMS_ITS | Clinical Summary ---
Author Organization [employer] Address [address] [facility] [address] [place] [address] Care Team Providers Care Policy Loan Calculator Name Role Phone Jessica Gonzalez MD Primary Care Provider [phone] Allergies Active Allergy Reactions Criticality Noted Date Comments Atorvastatin Hives Medium 09/24/2024 Medications cholecalciferol (Vitamin D-3) 50 MCG (1999 UT) capsule Take 1 capsule by mouth every 12 (twelve) hours. 10/06/19 17 Active simvastatin (Zocor) 40 MG tabletIndications :Mixed hyperlipidemia TAKE 1 TABLET BY MOUTH EVERYDAY AT BEDTIME 90 tablet 05/28/20 24 Active PARoxetine (Paxil) 20 MG tablet TAKE 1 TABLET BY MOUTH EVERY DAY 90 tablet 2 08/15/19 25 Active levothyroxine (Synthroid, Levoxyl) 75 MCG tablet TAKE 1 TABLET BY MOUTH EVERY DAY 90 tablet 1 08/16/19 25 Active lisinopril 5 MG tabletIndications :Benign essential hypertension Take 1 tablet (5 mg) by mouth Once per day. 30 tablet 11 10/09/19 25 026 Active aspirin (Tavia Aspirin) 325 MG tablet Take 1 tablet (325 mg) by mouth Once per day. 90 tablet 3 10/25/19 25 Active aspirin (Tavia Aspirin) 325 MG tablet Take 1 tablet by mouth. 025 Discontinued(R eorder (will not trigger notification to Pharmacy)) ibuprofen 600 MG tablet Take 1 tablet (600 mg) by mouth every 6 (six) hours if needed for mild pain for up to 7 days 28 tablet 11/25/19 23 025 Discontinued lisinopril 10 MG tablet Take 1 tablet by mouth Once per day. 025 Discontinued Active Problems Problem Noted Date Diagnosed Date Melanocytic nevus of skin 12/13/2017 Adjustment disorder with depressed mood in remsunday kate 05/13/2015 Benign essential hypertension 05/13/2015 Dyslipidemia 05/13/2015 Acquired hypothyroidism 12/22/2011 Anxiety 12/22/2011 Cerebrovascular accident 12/22/2011 Tobacco dependence syndrome 12/22/2011 Encounters Date Type Department Care Team Description 10/24/2024 3:20 PM EDT Office Visit [facility] [address] [place] [address] Jessica Gonzalez MD Benign essential hypertension (Primary Dx); Dietary counseling; Exercise counseling; Acquired hypothyroidism; Cerebrovascular accident (CVA), unspecified mechanism (CMS/HCC); Dyslipidemia; Adjustment disorder with depressed mood in remission; CRF (chronic renal failure), unspecified stage; 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 Travel 10/21/2024 Telephone [facility] [address] [place] [address] Jessica Gonzalez MD 10/17/2024 Telephone [facility] [address] [place] [phone] Jessica Gonzalez MD Appointment Request 10/16/2024 Telephone [facility] [address] [place] [address] Julian Allen MD bp log 10/16/2024 Orders Only [facility] [address] [place] [address] Cesar Shen MD 10/10/2024 Telephone [facility] [address] [place] [address] Julian Allen MD Results 10/10/2024 Orders Only [facility] [address] [place] [phone] Julian Allen MD Decreased GFR (Primary Dx) 10/08/2024 2:15 PM EDT Office Visit [facility] [address] [place] [address] Julian lAlen MD Benign essential hypertension (Primary Dx); Hypotension due to hypovolemia; ROZINA (acute kidney injury) (CMS/HCC); Pneumonia due to infectious organism, unspecified laterality, unspecified part of lung 10/08/2024 Travel 10/07/2024 Telephone [facility] [address] [place] [address] Jessica Gonzalez MD Chart Prep 09/30/2024 Patient Outreach [facility] [address] [place] [address] Jessica Gonzalez MD Pre-visit Planning (HDF scheduled. ) 09/30/2024 Telephone [facility] [address] [place] [address] Jessica Gonzalez MD Hospital Follow-up 09/27/2024 Orders Only [facility] [address] [place] [address] Cesar Shen MD 09/25/2024 Orders Only [facility] [address] [place] [phone] Cesar Shen MD 08/14/2024 Refill [facility] [address], [place] [phone] MachadoLenny Matta MD 08/14/2024 Refill [facility] [address], [place] [phone] Jessica Gonzalez MD from Last 3 Months Immunizations Name Administration Dates Next Due Influenza Quadrivalent Adjuvanted 06/30/2023,,06/25/2021 Influenza injectable quadriv alent IIV4 with preservative 04/26/2017,04/26/2016,05/13/2015 Influenza, High Dose Seasona l, Preservative Free 05/03/2024,04/18/2019,04/05/2018 Influenza, IIV3, injectable 04/11/2014 Influenza, Split (incl. emily fied surface antigen) 04/12/2013,05/03/2012 Pneumococcal Conjugate PCV 13 05/13/2015 Pneumococcal Polysaccharide PPSV23 12/12/2012 RSV Adjuvant 05/03/2024 Td (adult), unspecified 12/31/2000 Tdap 02/27/2012 Zoster, Recombinant 04/18/2019 Zoster, live 12/25/2012 Social History Tobacco Use Types Packs/Day Years Used Date Smoking Tobacco: Never Passive Smoke Exposure: Never Smokeless Tobacco: Never Tobacco Cessation:Counseling Given: Not Answered Depression Answer Date Recorded Patient Health Questionnaire-9 [...] not to disclose 2021 10:18 AM EDT Last Filed Vital Signs Vital Sign Reading Time Taken Comments Blood Pressure 130/80 10/24/2024 3:53 PM EDT Pulse 60 10/24/2024 3:40 PM EDT Temperature 36.4 ??C (97.5 ??F) 10/24/2024 3:40 PM ED T Respiratory Rate 16 10/24/2024 3:40 PM EDT Oxygen Saturation 98% 10/24/2024 3:40 PM EDT Inhaled Oxygen Concentration - - Weight 62.1 kg (137 lb) 10/24/2024 3:40 PM EDT Height 149.9 cm (4' 11 ) 10/24/2024 3:40 PM EDT Body Mass Index 27.67 10/24/2024 3:40 PM EDT Plan of Treatment Upcoming Encounters Date Type Department Care Team (Late st Contact Info) Description 12/19/2024 11:00 AM EDT Office Visit [facility] [address] [place] [address] Jessica Gonzalez MD [address] [place] [address] Health Maintenance Due Date Last Done Comments Dental Oral Exam 1945 Dental Prophylaxis 1945 Dental X-Ray: Bitewings 1945 Dental X-Ray: Full Mouth 1945 Hepatitis C Screening 1963 Zoster Vaccines (3 of 3) 06/13/2019 04/18/2019, 12/15 DTaP/Tdap/Td Vaccines (2 - Td or Tdap) 02/26/2022 02/27/2012, 12/31/2000 COVID-19 Vaccine (4 - season) 2024 06/30/2023, 09/16/2020, 08/26/2020 Tobacco Screening 12/31/2024 01/01/2024 Alcohol/Substance Use Screening 10/08/2025 10/08/2024 Depression Screening 10/08/2025 10/08/2024, 10/09/19 SDOH Screening 10/08/2025 10/08/2024 Lipid Panel 11/29/2028 11/30/2023 Pneumococcal Vaccine: 50+ Years Completed 05/13/2015, 12/12/2012 Influenza Vaccine Completed 05/03/2024, , 06/04/2022, Additional history exists RSV Patients and Patients Aged 60 years or older Completed 05/03/2024 HIB Vaccines Aged Out No [...] patient's age to complete this topic Meningococcal Vaccine Aged Out No elvia santos eligible based on patient's age to complete this topic RSV under 20 months Aged Out No longe r eligible based on patient's age to complete this topic Rotavirus Vaccines Aged Out No longer eligible based on patient's age to complete this topic Procedures Procedure Name Priority Date/Time Associated Diagnosis Comments US RETROPERITONEAL LIMITED Routine 10/15/2024 9:20 AM EDT BASIC METABOLIC PANEL Routine 10/08/2024 2:52 PM EDT ROZINA (acute kidney injury) (CMS/HCC) TRANSTHORACIC ECHO (TTE) COMPLETE Routine 09/26/2024 1:37 PM EDT ECG 12-LEAD Routine 09/26/2024 1:15 PM EDT XR CHEST 2 VIEWS Routine 09/23/2024 12:4 4 PM EDT ECG 12-LEAD Routine 09/23/2024 11:02 AM EDT LIPID PANEL, STANDARD Routine 11/30/2023 2:43 PM EDT Mixed hyperlipidemia from Last 3 Months or Most Recently Relevant to Health Maintenance Results * US RETROPERITONEAL LIMITED (10/15/2024 9:20 AM EDT) Anatomical Region Laterality Modality Abdomen Ultrasound us Historical Provider MD BARROSO US PROCEDURES Final R esult * (ABNORMAL) Basic Metabolic Panel (10/08/2024 2:52 PM EDT) Sodium 142 135 - 145 mmol/L [facility] Potassium 4.3 3.3 - 5.1 mmol/L [facility] Chloride 112(H) 96 - 108 mmol/L [facility] Carbon Dioxide 23 22 - 29 mmol/L [facility] Anion Gap 11(L) 12 - 20 [facility] Urea Nitrogen (BUN) 18(H) 9 - 16 mg/dL [facility] Creatinine, Serum 1.56(H) 0.5 - 1.4 mg/dL [facility] Estimated Glomerular Filt Rate 32 [facility] Comment:Chronic Kidney Disea se: Estimated GFR < 60 mL/min/1.94b2Nfelcv Kidney Disease: Estimated GFR < 15 mL/min/1.73m2 Glucose 75 60 - 115 mg/dL [facility] Calcium 9.3 8.4 - 10.2 mg/dL [facility] Blood Venous blood specimen / Unknown 10/08/2024 2:52 PM EDT 10/08/2024 6:08 PM EDT Result [facility] Julian Allen MD LAB BLOOD ORDERABLES Final Result [facility] [address] [place] [phone] * Transthoracic echo (TTE) complete (09/26/2024 1:37 PM EDT) Result [facility] Historical Provider CV ECHO PROCEDURES Final Result * ECG 12 lead (09/26/2024 1:15 PM EDT) Only the most recent of2 resultswithin the time period is included. Result [facility] Historical Provider ECG ORDERABLES Final Res ult * XR Chest 2 Views (09/23/2024 12:44 PM EDT) Anatomical Region Laterality Modality Chest Radiographic Lilliam ging Result [facility] Historical Provider IMG XR PROCEDURES Final R esult * (ABNORMAL) Lipid Panel, Standard (11/30/2023 2:43 PM EDT) Triglycerides 174(H) <150 mg/dL [facility] Comment:Desirable Triglyceri de: less than 150 mg/dLBorderline High Triglyceride 150-199 mg/dLHigh Triglyceride: 200-499 mg/dLVery High Triglyceride: greater than or equal to 5OO mg/dL Cholesterol 163 <200 mg/dL [facility] Comment:Desirable Cholestero l: less than 200 mg/dLBorderline High Cholesterol: 200-239 mg/dLHigh Cholesterol: greater than 239 mg/dL LDL Cholesterol Calculated 86 <100 mg/dL [facility] Comment:Desirable LDL: less than 100 mg/dLNear Optimal/Above Optimal LDL: 110- 129 mg/dLBorderline High LDL: 130-159 mg/dLHigh LDL: 160-189 mg/dLVery High LDL: greater than or equal to 190 mg/dL HDL Cholesterol 43 >40 mg/dL [facility] Comment:Desirable HDL: great er than 40 mg/dL Note: This HDL assay may give artificially low results in patients with liver disease. Blood Venous blood specimen / Unknown 11/30/2023 2:43 PM EDT 11/30/2023 5:58 PM EDT us Jessica Gonzalez MD LAB BLOOD ORDERABLES Final Re sult [facility] [address] [place] [phone] [phone] from Last 3 Months or Most Recently Relevant to Health Maintenance Insurance MEDICARE Member Subscriber Plan / Payer (Ef fective 2023-Present) Name:Maria Eugenia Zimmerman Member ID:[id number] Relation to Subscriber:Self Name:Maria Eugenia Zimmerman Subscriber ID:[id number] Payer ID:STATE Group ID:Not on file Type:Medicare Address: [facility] [address] [place] [address] [facility] MEDICAID STAND ADULT Care Teams Policy Loan Calculator Relationship Specialty Start Date End Date Jessica Gonzalez MD [address] [place] [phone] PCP - General Family Medicine 07/17/18
== END 2024-11-05 09:27 | disposition home or self-care (01) ==
LOC: HO.CHCLDS 09:26
PROVIDERS: Visit Provider Pediatrics
DX: E03.9 Hypothyroidism, unspecified (principal)
CPT/HCPCS: 36415; 84443

== ENCOUNTER 2024-12-27 10:29 | Outpatient (REF) | payer MEDICARE, MEDICAID, SELFPAY ==
--- OUTSIDE RECORDS SUMMARY | 2024-12-27 11:33 | XMS_ITS | Encounter Summary ---
Author Organization [employer] Address [address] [facility] [address] [place] [address] Care Team Providers Care Medical Staffing Coordinator Name Role Phone Jessica Gonzalez MD Primary Care Provider [phone] Encounter Details Date Type Department Care Team (Late st Contact Info) Description 10/16/2024 Orders Only [facility] [address] [place] [address] Provider, MD Cesar Social History Tobacco Use [...] Care Team (Late st Contact Info) Description 02/05/2025 10:15 AM EDT Office Visit [facility] [address] [place] [address] Jessica Gonzalez MD [address] [place] [address] documented as of this encounter Procedures Procedure [...] documented as of this encounter Care Teams Medical Staffing Coordinator Relationship Specialty Start Date End Date Jessica Gonzalez MD [address] [place] [address] PCP - General Family Medicine 07/17/18 documented as of this encounter
[2024-12-30 10:39] LABS: Kappa Light Chain, Free Serum 28.8 mg/L (3.3-19.4); Kappa/Lambda Lt Ch Free Ratio 1.16 (0.26-1.65); Lambda Light Chain, Free Serum 24.9 mg/L (5.7-26.3)
[2024-12-31 15:38] LABS: IgA 155 mg/dL (70-320); IgG 847 mg/dL (600-1540); IgM 110 mg/dL (50-300)
== END 2024-12-27 10:30 | disposition home or self-care (01) ==
LOC: HO.LAB 10:29
PROVIDERS: PCP Pediatrics; Visit Provider Internal Medicine
DX: N18.31 Chronic kidney disease, stage 3a (principal)
CPT/HCPCS: 36415; 82784; 83521; 86334

== ENCOUNTER 2025-02-05 11:15 | Outpatient (REF) | payer MEDICARE, MEDICAID, SELFPAY ==
--- OUTSIDE RECORDS SUMMARY | 2025-02-05 12:18 | XMS_ITS | Clinical Summary ---
Author Organization [facility] Address [address] [facility] [address] [place] [phone] Phone Care Team Providers Care Proofer Prepress Name Role Phone Jessica Gonzalez MD Primary Care Provider Unav ailable Allergies Active Allergy Reactions Criticality Noted Date Comments Atorvastatin Hives Medium 09/24/2024 Medications albuterol HFA (PROVENTIL HFA;VENTOLIN HFA) 108 (90 Base) MCG/ACT inhaler Inhale 2 puffs every 6 hours as needed Active aspirin 325 MG tablet Take 325 mg by mouth in the morning. 10/24/2024 Active Cholecalciferol 50 MCG (2000 UT) capsule Take 1 capsule by mouth in the morning and 1 capsule in the evening. 10/05/2016 Active levothyroxine (SYNTHROID, LEVOTHROID) 75 MCG tablet Take 75 mcg by mouth in the morning. 08/16/2024 Active lisinopril 2.5 MG tablet Take 2.5 mg by mouth in the morning. 09/28/2024 Active PARoxetine (PAXIL) 20 MG tablet Take 20 mg by mouth in the morning. Active simvastatin (ZOCOR) 40 MG tablet Take 40 mg by mouth 1 (one) time each day in the evening 11/12/2024 Active Active Problems Problem Noted Date Diagnosed Date Pneumonia 09/24/2024 Melanocytic nevus of skin 12/13/2017 Adjustment disorder with depressed mood in remis kate 05/13/2015 Benign essential hypertension 05/13/2015 Dyslipidemia 05/13/2015 Acquired hypothyroidism 12/22/2011 Anxiety 12/22/2011 Cerebrovascular accident 12/22/2011 Tobacco dependence syndrome 12/22/2011 Encounters Date Type Department Care Team Description 12/20/2024 10:00 AM EDT Office Visit [facility] [address] [place] [phone] Jarad Reina MD Stage 3a chronic kidney disease (HCC) (Primary Dx) from Last 3 Months Family History Medical History Relation Comments Lung cancer Father Alzheimer's disease Mother Relation Status Comments Father Mother Social History Tobacco Use Types Packs/Day Years Used Date Smoking Tobacco: Former Cigarettes Smokeless Tobacco: Former Tobacco Cessation:Counseling Given: Yes Alcohol Use Standard Drinks/Week Comments Never 0 (1 standard drink = 0.6 oz pur e alcohol) Comments Unknown Sex and Gender Information Value Date Recorded Sex Assigned at Not on file Legal Sex Female 1:20 PM EDT Gender Identity Not on file Sexual Orientation Not on file Last Filed Vital Signs Vital Sign Reading Time Taken Comments Blood Pressure 120/72 12/20/2024 10:00 AM EDT Pulse 63 12/20/2024 10:00 AM EDT Temperature - - Respiratory Rate - - Oxygen Saturation 96% 12/20/2024 10: 00 AM EDT Inhaled Oxygen Concentration - - Weight 61.6 kg (135 lb 12.8 oz) 025 10:00 AM EDT Height - - Body Mass Index - - Plan of Treatment Upcoming Encounters Date Type Department Care Team (Late st Contact Info) Description 04/01/2025 4:00 PM EDT [facility] [address] [phone] Jarad Reina MD [facility] [address] [phone] Health Maintenance Due Date Last Done Comments Influenza Vaccine (#1) 2025 4, 06/30/2023, 06/04/2022, Additional history exists Pneumococcal Vaccine: 50+ Years Completed 05/13/2015, 12/12/2012 Hepatitis B Vaccine Aged Out No longe r eligible based on patient's age to complete this topic Insurance Medicare Medicaid [place] Care Teams Proofer Prepress Relationship Specialty Start Date End Date Jessica Gonzalez MD [address] [place] [phone] PCP - General Internal Medicine 10/28/24
--- OUTSIDE RECORDS SUMMARY | 2025-02-05 12:18 | XMS_ITS | Clinical Summary ---
Author Organization [facility] Address [address] [place] [address] Phone Care Team Providers Care Organ Recovery Coordinator Name Role Phone Jessica Gonzalez MD Primary Care Provider [phone] Allergies Active Allergy Reactions Criticality Noted Date [...] time each day. 30 each 5 Active Active Problems Problem Noted Date Diagnosed Date Pneumonia of right lung due to infectious organism, unspecified part of lung 09/24/2024 Medical History Medical History Date Comments Hypercholesteremia [...] 51 09/28/2024 7:33 AM EDT Temperature 36.5 C (97.7 F) 09/28/2024 7:33 AM EDT Respiratory Rate 18 09/28/2024 7:33 AM EDT Oxygen Saturation 99% 09/28/2024 7:33 AM EDT Inhaled Oxygen Concentration - - Weight 60.3 kg (132 lb 15 oz) 09/26/2024 4:20 PM EDT Height 147.3 cm (4' 10 ) 09/26/2024 4:20 PM EDT Body Mass Index 27.78 09/26/2024 4:20 PM EDT Plan of Treatment Health Maintenance Due Date Last Done Comments Zoster Vaccines (3 of 3) 06/13/2019 04/18/2019, 12/15 DTaP,Tdap,and Td Vaccines (3 - Td or Tdap) 02/26/2022 02/27/2012, 12/31/2000 COVID-19 Vaccine ( season) 2024 06/30/2023, 09/16/2020, 08/26/2020 Depression Screening 07/17/2024 Hepatitis C Screening 09/24/2024 Medicare Annual Wellness Visit 09/24/2024 Osteoporosis Screening (Bone Density Screening) 09/24/2024 Social Influencers of Health Screening 09/24/2024 Influenza Vaccine (#1) 2025 , 06/30/2023, 06/04/2022, Additional history exists Falls Risk Assessment 09/28/2025 09/28/2024 Hypertension/CHF/CAD Annual BMP Blood Test 10/08/2025 10/08/2024, 09/28/2024, 09/27/2024, Additional history exists Cholesterol Screening (Lipid Panel) 11/29/2028 11/30/2023 Pneumococcal Vaccine: 50+ Years Completed 05/13/2015, 12/12/2012 RSV Immunization Adult Patients Completed 05/03/2024 HIB [...] Procedure Name Priority Date/Time Associated Diagnosis Comments BASIC METABOLIC PANEL Timed 09/28/2024 5:49 AM EDT from Last 3 Months or Most Recently Relevant to Health Maintenance Results * (ABNORMAL) Basic metabolic panel (09/28/2024 5:49 AM EDT) Sodium 144 133 - 145 mmol/L LAB CHEMISTRY METHOD 09/28/2024 6:41 AM EDT [facility] Potassium 3.7 3.5 - 5.5 mmol/L LAB CHEMISTRY METHOD 09/28/2024 6:41 AM [facility] Chloride 113(H) 96 - 110 mmol/L LAB CHEMISTRY METHOD 09/28/2024 6:41 AM [facility] CO2 23 21 - 32 mmol/L LAB CHEMISTRY METHOD 09/28/2024 6:41 AM [facility] Anion Gap 8 3 - 11 LAB CHEMISTRY METHOD 09/28/2024 6:41 AM EDT [facility] Glucose 93 70 - 100 mg/dL LAB CHEMISTRY METHOD 09/28/2024 6:41 AM EDT [facility] BUN 22 5 - 25 mg/dL LAB CHEMISTRY METHOD 09/28/2024 6:41 AM T [facility] Creatinine 1.03 0.50 - 1.10 mg/dL LAB CHEMISTRY METHOD 09/28/2024 6:41 AM EDT [facility] eGFR 55(L) >=60 mL/min/1. 73m2 LAB CHEMISTRY METHOD 09/28/2024 6:41 AM EDT [facility] Comment:Calculation based on the Chronic Kidney Disease Epidemiology Collaboration (CKD-EPI) equation refit without adjustment for race. 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
--- OUTSIDE RECORDS SUMMARY | 2025-02-05 12:18 | XMS_ITS | Encounter Summary ---
Author Organization [employer] Address [address] [facility] [address] [place] [address] Care Team Providers Care Medical Transcription Name Role Phone Jessica Gonzalez MD Primary Care Provider [phone] Encounter Details Date Type Department Care Team (Late st Contact Info) Description 10/16/2024 Orders Only [facility] [address] [place] [address] Provider, MD Cesar Social History Tobacco Use [...] as of this encounter Plan of Treatment Not on file documented as of this encounter Procedures Procedure [...] as of this encounter Care Teams Medical Transcription Relationship Specialty Start Date End Date Jessica Gonzalez MD [address] [place] [phone] PCP - General Family Medicine 07/17/18 documented as of this encounter
[2025-02-05 14:17] LABS: MANUAL DIFF FLAG NO
[2025-02-05 14:19] LABS: Hematocrit 33.6 % (37.0-47.0); Hemoglobin 10.3 g/dl (12.0-16.0); Imm Gran Abs Auto 0.01 X10*3/uL (0.00-0.03); Imm Gran Pct Auto 0.2 % (0.0-0.4); Lymphocytes Absolute Auto 1.2 X10*3/uL (1.2-4.9); Mean Corpuscular HGB Conc 30.7 g/dl (31.0-35.0); Mean Corpuscular Hemoglobin 25.1 pg (27.0-33.0); Mean Corpuscular Volume 82.0 fL (80.0-98.0); NRBC Abs Auto 0.000 X10*3/uL (0.0-0.012); NRBC Pct Auto 0.0 /100WBC (0.0-0.2); Platelet Count 341 X10*3/uL (160-400); Red Blood Count 4.10 X10*6/uL (4.20-5.50); White Blood Count 6.1 X10*3/uL (4.8-10.8)
[2025-02-05 14:31] LABS: Uric Acid 6.1 mg/dL (2.4-5.7)
[2025-02-05 15:10] LABS: Folate 8.4 ng/mL (> or = 4.0); Vitamin B12 302 pg/mL (200-900)
[2025-02-06 06:48] LABS: Lyme Abs Screen <0.90 index
== END 2025-02-05 11:16 | disposition home or self-care (01) ==
LOC: HO.CHCLDS 11:15
PROVIDERS: Visit Provider Pediatrics
DX: I12.9 Hypertensive chronic kidney disease with stage 1 through stage 4 chronic kidney disease, or unspecified chronic kidney disease (principal); N18.9 Chronic kidney disease, unspecified; M25.562 Pain in left knee; G89.29 Other chronic pain
CPT/HCPCS: 36415; 82607; 82746; 84550; 85025; 85652; 86140; 86431; 86617; 86618

== ENCOUNTER 2025-03-31 15:29 | Outpatient (REF) | payer MEDICARE, MEDICAID, SELFPAY ==
[2025-03-31 15:57] LABS: MANUAL DIFF FLAG NO
[2025-03-31 16:11] LABS: Hematocrit 34.8 % (37.0-47.0); Hemoglobin 11.0 g/dl (12.0-16.0); Imm Gran Abs Auto 0.03 X10*3/uL (0.00-0.03); Imm Gran Pct Auto 0.4 % (0.0-0.4); Lymphocytes Absolute Auto 1.5 X10*3/uL (1.2-4.9); Mean Corpuscular HGB Conc 31.6 g/dl (31.0-35.0); Mean Corpuscular Hemoglobin 26.6 pg (27.0-33.0); Mean Corpuscular Volume 84.1 fL (80.0-98.0); NRBC Abs Auto 0.000 X10*3/uL (0.0-0.012); NRBC Pct Auto 0.0 /100WBC (0.0-0.2); Platelet Count 299 X10*3/uL (160-400); Red Blood Count 4.14 X10*6/uL (4.20-5.50); White Blood Count 8.4 X10*3/uL (4.8-10.8)
[2025-03-31 16:55] LABS: Anion Gap 11 (12-20); Blood Urea Nitrogen 23 mg/dL (9-16); Calcium 9.3 mg/dL (8.4-10.2); Carbon Dioxide 25 mmol/L (22-29); Chloride 112 mmol/L (96-108); Estimated Glomerular Filt Rate 42; Magnesium 2.2 mg/dL (1.6-2.6); Potassium 4.0 mmol/L (3.3-5.1); Sodium 144 mmol/L (135-145); Uric Acid 6.0 mg/dL (2.4-5.7)
[2025-03-31 17:35] LABS: Appearance Urine Clear; Glucose Urine UA Negative (Negative); PH 5.5 (5.0-9.0); Specific Gravity - Urine >= 1.030 (1.005-1.025)
[2025-03-31 18:30] LABS: Microalbum/Creatinine Ratio Ur 5.6 ug/mg cr (<30); Protein/Creatinine Ratio, Ur 0.05 (<0.2); Total Protein Urine Random 14 mg/dL (<12)
--- OUTSIDE RECORDS SUMMARY | 2025-03-31 20:54 | XMS_ITS | Encounter Summary ---
Author Organization [employer] Address [address] [facility] [address] [place] [address] Care Team Providers Care Drafter Structural Name Role Phone Jessica Gonzalez MD Primary Care Provider Reason for Visit * Reason Onset Date Comments Hospital Follow-up 09/30/2024 Encounter Details Date Type Department Care Team (Late st Contact Info) Description 09/30/2024 Telephone [facility] [address] [place] [address] Jessica Gonzalez MD [address] [place], [place] [phone] Hospital Follow-up Social History Tobacco Use Types [...] from pt requesting a HDF appt. Hospital: [facility] Date of admission: 09/25/2024 Discharge date: 09/28/2024 Diagnosed: Pneumonia *Send message to [place] Clinical Care Coordinators documented in this encounter Plan of Treatment Not on file documented as of this encounter Visit Diagnoses Not on filedocumented in this encounter Additional Health Concerns Assessment Noted Time PHQ-9 Depression Total Score: 1 11/30/19 24 2:28 PM EDT documented as of this encounter Care Teams Drafter Structural Relationship Specialty Start Date End Date Jessica Gonzalez MD [address] [place] [phone] PCP - General Family Medicine 07/17/18 documented as of this encounter
--- OUTSIDE RECORDS SUMMARY | 2025-03-31 20:54 | XMS_ITS | Encounter Summary ---
Author Organization [employer] Address [address] [facility] [address] [place] [address] Care Team Providers Care Die Cleaner Name Role Phone Jessica Gonzalez MD Primary Care Provider [phone] Encounter Details Date Type Department Care Team (Late st Contact Info) Description 09/27/2024 Orders Only [facility] [email or web address] Information Management [address] [place] [address] Provider, Cesar, Social History Tobacco Use Types Packs/Day Years [...] ECG 12 lead (09/26/2024 1:15 PM EDT) us Historical Provider ECG ORDERABLES Final Res ult documented in this encounter Visit Diagnoses Not on filedocumented in this encounter Additional Health Concerns Assessment Noted Time PHQ-9 Depression Total Score: 1 11/30/19 24 2:28 PM EDT documented as of this encounter Care Teams Die Cleaner Relationship Specialty Start Date End Date Jessica Gonzalez MD [address] [place] [phone] PCP - General Family Medicine 07/17/18 documented as of this encounter
--- OUTSIDE RECORDS SUMMARY | 2025-03-31 20:54 | XMS_ITS | Encounter Summary ---
Author Organization [employer] Address [address] [facility] [address] [place] [address] Care Team Providers Care Union Representative Name Role Phone Jessica Gonzalez MD Primary Care Provider [phone] Encounter Details Date Type Department Care Team (Late st Contact Info) Description 09/25/2024 Orders Only [facility] Information Management [address] [place] [address] Provider, Cesar, Social History Tobacco Use Types [...] Region Laterality Modality Chest Radiographic Lilliam ging Historical Provider MD BARROSO XR PROCEDURES Final R esult * ECG 12 lead (09/23/2024 11:02 AM EDT) us Historical Provider ECG ORDERABLES Final Res ult documented in this encounter Visit Diagnoses Not on filedocumented in this encounter Additional Health Concerns Assessment Noted Time PHQ-9 Depression Total Score: 1 11/30/19 24 2:28 PM EDT documented as of this encounter Care Teams Union Representative Relationship Specialty Start Date End Date Jessica Gonzalez MD [address] [place] [phone] PCP - General Family Medicine 07/17/18 documented as of this encounter
--- OUTSIDE RECORDS SUMMARY | 2025-03-31 20:54 | XMS_ITS | Clinical Summary ---
Author Organization [employer] Address [address] [facility] [address] [place] [address] Care Team Providers Care Hydraulic Technician Name Role Phone Jessica Gonzalez MD Primary Care Provider [phone] Allergies Active Allergy Reactions Criticality Noted Date Comments Atorvastatin Hives Medium 09/24/2024 Medications cholecalciferol (Vitamin D-3) 50 MCG (1999 UT) capsule Take 1 capsule by mouth every 12 (twelve) hours. 7 Active PARoxetine (Paxil) 20 MG tablet TAKE 1 TABLET BY MOUTH EVERY DAY 90 tablet 2 5 Active lisinopril 5 MG tabletIndications:B enign essential hypertension Take 1 tablet (5 mg) by mouth Once per day. 30 tablet 11 5 10/09/19 26 Active aspirin (Tavia Aspirin) 325 MG tablet Take 1 tablet (325 mg) by mouth Once per day. 90 tablet 3 5 Active levothyroxine (Synthroid, Levoxyl) 75 MCG tablet TAKE 1 TABLET BY MOUTH EVERY DAY 90 tablet 1 5 Active simvastatin (Zocor) 40 MG tabletIndications:M ixed hyperlipidemia TAKE 1 TABLET BY MOUTH EVERYDAY AT BEDTIME 90 tablet 5 Active Active Problems Problem Noted Date Diagnosed Date Melanocytic nevus of skin 12/13/2017 Adjustment disorder with depressed mood in remis kate 05/13/2015 Benign essential hypertension 05/13/2015 Dyslipidemia 05/13/2015 Acquired hypothyroidism 12/22/2011 Anxiety 12/22/2011 Cerebrovascular accident 12/22/2011 Tobacco dependence syndrome 12/22/2011 Encounters Date Type Department Care Team Description 03/09/2025 Refill [facility] [address] [place] [address] Jessica Gonzalez MD 02/17/2025 Results Follow-Up [facility] [address] [place] [address] Zainab Jimenez, CELENA CBC auto differential, Lyme Disease Ab with Reflex to Blot (IgG, IgM), C-reactive Protein, Additional followed-up results: 4 02/16/[address] [facility] [address] [place] [address] Jessica Gonzalez MD Mixed hyperlipidemia 02/14/2025 10:30 AM EDT Procedure Visit [facility] [address] [place] [address] Anna Pérez MD Chronic pain of left knee (Primary Dx) 02/14/2025 Travel 02/05/2025 10:15 AM EDT Office Visit [facility] [address] [place] [address] Jessica Gonzalez MD Benign essential hypertension (Primary Dx); CRF (chronic renal failure), unspecified stage; Chronic pain of left knee; Acquired hypothyroidism; Adjustment disorder with depressed mood in remission 02/05/2025 Travel 02/04/[address] [facility] [address] [place] [address] Jessica Gonzalez MD Chart Prep 01/27/2025 Patient Outreach [facility] [address] [place], [place] [phone] Jessica Gonzalez MD Pre-visit Planning (Pre visit planning LVM ) from Last 3 Months Immunizations Immunization Administration Dates Next Due Influenza Quadrivalent Adjuvanted [...] Sign Reading Time Taken Comments Blood Pressure 143/73 02/14/2025 10:39 AM EDT Pulse 59 02/14/2025 10:39 AM EDT Temperature 36.1 C (97 F) 02/14/2025 10:39 AM EDT Respiratory Rate 18 02/14/2025 10:39 AM EDT Oxygen Saturation 99% 02/05/2025 11:01 AM EDT Inhaled Oxygen Concentration - - Weight 59.9 kg (132 lb) 02/14/2025 10:39 AM EDT Height 149.9 cm (4' 11 ) 02/14/2025 10:39 AM EDT Body Mass Index 26.66 02/14/2025 10:39 AM EDT Plan of Treatment Health Maintenance Due Date Last Done Comments Dental Oral Exam 1945 Dental Prophylaxis 1945 Dental X-Ray: Bitewings 1945 Dental X-Ray: Full Mouth 1945 Hepatitis C Screening 1963 Zoster Vaccines (3 of 3) 06/13/2019 04/18/2019, 12/15 DTaP/Tdap/Td Vaccines (2 - Td or Tdap) 02/26/2022 02/27/2012, 12/31/2000 COVID-19 Vaccine (4 - season) 2025 06/30/2023, 09/16/2020, 08/26/2020 Influenza Vaccine (#1) 2025 , 06/30/2023, 06/04/2022, Additional history exists Alcohol/Substance Use Screening 10/08/2025 10/08/2024 Depression Screening 10/08/2025 10/08/2024, 10/09/19 SDOH Screening 10/08/2025 10/08/2024 Tobacco Screening 02/14/2026 02/14/2025 Lipid Panel 11/29/2028 11/30/2023 Pneumococcal Vaccine: 50+ Years Completed 05/13/2015, 12/12/2012 RSV Patients and Patients Aged 60 years [...] Procedure Name Priority Date/Time Associated Diagnosis Comments NC ARTHROCENTESIS ASPIR&/INJ MAJOR JT/BURSA W/O US Routine 02/14/2025 11:43 AM EDT Chronic pain of left knee VITAMIN B12/FOLATE, SERUM PANEL Routine 02/05/2025 11:17 AM EDT Benign essential hypertension CRF (chronic renal failure), unspecified stage Chronic pain of left knee URIC ACID Routine 02/05/2025 11:17 AM EDT Benign essential hypertension CRF (chronic renal failure), unspecified stage Chronic pain of left knee SED RATE BY MODIFIED WESTERGREN Routine 02/05/2025 11:17 AM EDT Benign essential hypertension CRF (chronic renal failure), unspecified stage Chronic pain of left knee RHEUMATOID FACTOR Routine 02/05/2025 11: 17 AM EDT Benign essential hypertension CRF (chronic renal failure), unspecified stage Chronic pain of left knee C-REACTIVE PROTEIN Routine 02/05/2025 11 :17 AM EDT Benign essential hypertension CRF (chronic renal failure), unspecified stage Chronic pain of left knee LYME DISEASE AB W/REFL TO BLOT (IGG, IGM) Routine 02/05/2025 11:17 AM EDT Benign essential hypertension CRF (chronic renal failure), unspecified stage Chronic pain of left knee CBC WITH AUTO DIFFERENTIAL Routine 02/05/2025 11:17 AM EDT Benign essential hypertension CRF (chronic renal failure), unspecified stage Chronic pain of left knee LIPID PANEL, STANDARD Routine 11/30/2023 2:43 PM EDT Mixed hyperlipidemia from Last 3 Months or Most Recently Relevant to Health Maintenance Results * NC ARTHROCENTESIS ASPIR&/INJ MAJOR JT/BURSA W/O US (02/14/2025 11:43 AM EDT) Anna Piña MD - 02/14/2025 11:43 AM EDT Anna Pérez MD 02/14/2025 11:47 AM Arthrocentesis Date/Time: 02/14/2025 11:43 AM Performed by: Anna Pérez MD Authorized by: Anna Pérez MD Consent: Consent obtained: Verbal and written Consent given by: Patient Risks, benefits, and alternatives were discussed: yes Risks discussed: Pain Alternatives discussed: Referral [place] protocol: Procedure explained and questions answered to patient or proxy's satisfaction: yes Relevant documents present and verified: yes Test results available: yes Imaging studies available: yes Required blood products, implants, devices, and special equipment available: yes Site/side marked: yes Immediately prior to procedure, a time out was called: yes Patient identity confirmed: Verbally with patient Location: Location: Knee Knee: L knee Anesthesia: Anesthesia method: Topical application Procedure details: Preparation: Patient was prepped and draped in usual sterile fashion Needle gauge: 22 G Ultrasound guidance: no Approach: Lateral Steroid injected: yes Specimen collected: no Post-procedure details: Dressing: Adhesive bandage Procedure completion: Tolerated Anna Pérez MD IN CLINIC/BEDSIDE ORDERABLES Fin al Result * Vitamin B12/Folate, Serum Panel (02/05/2025 11:17 AM EDT) Vitamin B12 302 200 - 900 pg/mL [facility] Comment:NORMAL 200-900 PG/ML INDETERMINATE 160-199 PG/ML DEFICIENT < 160 PG/ML Folate 8.4 > or = 4.0 ng/mL [facility] Comment:Reference Values:> o r = 4.0 ng/mL< 4.0 ng/mL suggests folate deficiency Methotrexate, aminopterin and folinic acid(leucovorin) are chemotherapeutic agents whose molecularstructures are similar to folate; therefore, the Architectfolate assay cannot be used for patients using these drugs. Blood Venous blood specimen / Unknown 02/05/2025 11:17 AM EDT 02/05/2025 2:13 PM EDT Jessica Gonzalez MD LAB BLOOD ORDERABLES Final Re sult Performing Organization Address [facility] Co de Phone Number [facility] [address] [place] [phone] * Lyme Disease Ab with Reflex to Blot (IgG, IgM) (02/05/2025 11:17 AM EDT) [facility] Lyme Antibody Screen <0.90 index [facility] Comment:Index Interpretation ----- < 0.90 Negative 0.90-1.09 Equivocal > 1.09 PositiveAs recommended by the Food and Drug Administration(FDA), all samples with positive or equivocalresults in a Borrelia burgdorferi antibody screenwill be tested using a blot method. Positive orequivocal screening test results should not beinterpreted as truly positive until verified as suchusing a supplemental assay (e.g., B. burgdorferi blot).The screening test and/or blot for B. burgdorferiantibodies may be falsely negative in early stagesof Lyme disease, including the period when erythemamigrans is apparent.THIS TEST WAS PERFORMED AT:[facility] [address] [phone] ASKEW MD Lyme Blot [facility] 02/05/2025 11:1 7 AM EDT 02/05/2025 2:13 PM EDT Jessica Gonzalez MD LAB BLOOD ORDERABLES Final Re sult Performing Organization Address [facility] Co de Phone Number [facility] [address] [place] [phone] * (ABNORMAL) CBC auto differential (02/05/2025 11:17 AM EDT) White Blood Count 6.1 4.8 - 10.8 X10*3/uL [facility] Red Blood Count 4.10(L) 4.20 - 5.50 X10*6/uL [facility] Hemoglobin 10.3(L) 12.0 - 16.0 g/dl [facility] Hematocrit 33.6(L) 37.0 - 47.0 % [facility] Mean Corpuscular Volume 82.0 80.0 - 98.0 fL [facility] Mean Corpuscular Hemoglobin 25.1(L) 27.0 - 33.0 pg [facility] Mean Corpuscular HGB Conc 30.7(L) 31.0 - 35.0 g/dl [facility] Red Cell Distribution Width 16.1(H) 11.0 - 16.0 % [facility] Platelet Count 341 160 - 400 X10*3/uL [facility] Mean Platelet Volume 10.8 9.4 - 12.3 fL [facility] Neutrophils Percent Auto 66.0 45 - 73 % [facility] Imm Gran Pct Auto 0.2 0.0 - 0.4 % [facility] Lymphocytes Percent Auto 20.4 20 - 40 % [facility] Monocytes Percent Auto 9.7 2 - 11 % [facility] Eosinophils Percent Auto 3.0 0 - 4 % [facility] Basophils Percent Auto 0.7 0 - 2 % [facility] NRBC Pct Auto 0.0 0.0 - 0.2 /100WBC [facility] Neutrophils Absolute Auto 4.0 2.0 - 8.3 x10*3/uL [facility] Imm Gran Abs Auto 0.01 0.00 - 0.03 X10*3/uL [facility] Lymphocytes Absolute Auto 1.2 1.2 - 4.9 X10*3/uL [facility] Monocytes Absolute Auto 0.6 0.1 - 1.2 X10*3/uL [facility] Eosinophils Absolute Auto 0.2 0.0 - 0.4 X10*3/uL [facility] Basophils Absolute Auto 0.0 0.0 - 0.2 X10*3/uL [facility] NRBC Abs Auto 0.000 0.0 - 0.012 X10*3/uL [facility] Blood Venous blood specimen / Unknown 02/05/2025 11:17 AM EDT 02/05/2025 2:13 PM EDT Jessica Gonzalez MD LAB BLOOD ORDERABLES Final Re sult Performing Organization Address [facility] Co de Phone Number [facility] [address] [place] [phone] * (ABNORMAL) Sed Rate by Modified Walterergren (02/05/2025 11:17 AM EDT) Pathologist [facility] Erythrocyte Sedimentation Rate 42(H) 0 - 20 MM/HR [facility] Comment:Patients with polycy themia and many hemoglobin abnormalitiesmay have depressed sed rates whereas patients with anemiamay have elevated sed rates. Blood Venous blood specimen / Unknown 02/05/2025 11:17 AM EDT 02/05/2025 2:13 PM EDT us Jessica Gonzalez MD LAB BLOOD ORDERABLES Final Re sult Performing Organization Address [facility] Co de Phone Number [facility] [address] [place] [phone] * Rheumatoid Factor (02/05/2025 11:17 AM EDT) Pathologist [facility] Rheumatoid Factor <13.0 <15.0 IU/mL [facility] Blood Venous blood specimen / Unknown 02/05/2025 11:17 AM EDT 02/05/2025 2:13 PM EDT us Jessica Gonzalez MD LAB BLOOD ORDERABLES Final Re sult Performing Organization Address [facility] Co de Phone Number [facility] [address] [place] [phone] * (ABNORMAL) C-reactive Protein (02/05/2025 11:17 AM EDT) Pathologist [facility] C Reactive Protein 0.78(H) < or = 0.50 mg/dL [facility] Blood Venous blood specimen / Unknown 02/05/2025 11:17 AM EDT 02/05/2025 2:13 PM EDT Jessica Gonzalez MD LAB BLOOD ORDERABLES Final Re sult Performing Organization Address [facility] Co de Phone Number [facility] [address] [place] [phone] * (ABNORMAL) Uric acid (02/05/2025 11:17 AM EDT) [facility] Uric Acid 6.1(H) 2.4 - 5.7 mg/dL [facility] Blood Venous blood specimen / Unknown 02/05/2025 11:17 AM EDT 02/05/2025 2:13 PM EDT Jessica Gonzalez MD LAB BLOOD ORDERABLES Final Re sult Performing Organization Address [facility] Co de Phone Number [facility] [address] [place] [phone] * (ABNORMAL) Lipid Panel, Standard (11/30/2023 2:43 PM EDT) Pathologist [facility] Triglycerides 174(H) <150 mg/dL [facility] Comment:Desirable Triglyceri de: less than 150 mg/dLBorderline High Triglyceride 150-199 mg/dLHigh Triglyceride: 200-499 mg/dLVery High Triglyceride: greater than or equal to 5OO mg/dL Cholesterol 163 <200 mg/dL [facility] Comment:Desirable Cholestero l: less than 200 mg/dLBorderline High Cholesterol: 200-239 mg/dLHigh Cholesterol: greater than 239 mg/dL LDL Cholesterol Calculated 86 <100 mg/dL [facility] Comment:Desirable LDL: less than 100 mg/dLNear Optimal/Above Optimal LDL: 110- 129 mg/dLBorderline High LDL: 130-159 mg/dLHigh LDL: 160-189 mg/dLVery High LDL: greater than or equal to 190 mg/dL HDL Cholesterol 43 >40 mg/dL [facility] Comment:Desirable HDL: great er than 40 mg/dL Note: This HDL assay may give artificially low results in patients with liver disease. Blood Venous blood specimen / Unknown 11/30/2023 2:43 PM EDT 11/30/2023 5:58 PM EDT us Jessica Gonzalez MD LAB BLOOD ORDERABLES Final Re sult [facility] [address] [place] [phone] from Last 3 Months or Most Recently Relevant to Health Maintenance Insurance MEDICARE [facility] STANDARD DENTAL-[facility] MEDICAID STAND ADULT Care Teams Hydraulic Technician Relationship Specialty Start Date End Date Jessica Gonzalez MD [address] [place] [address] [phone] PCP - General Family Medicine 07/17/18
--- OUTSIDE RECORDS SUMMARY | 2025-03-31 20:54 | XMS_ITS | Encounter Summary ---
Author Organization [employer] Address [address] [facility] 7 [place] [address] Care Team Providers Care Compensation Programs Manager Name Role Phone Jessica Gonzalez MD Primary Care Provider [phone] Reason for Visit * Reason Comments Med Refill Encounter Details Date Type Department Care Team ([facility] st Contact Info) Description 03/09/2025 Refill [facility] [address] [place], [place] [phone] Jessica Gonzalez MD [address] [place] [address] Social History Tobacco Use Types Packs/Day Years Used Date Smoking Tobacco: Never Passive Smoke Exposure: Never Smokeless Tobacco: Never Depression Answer Date Recorded Patient Health Questionnaire-9 Score 0 10/08/2024 Patient Health Questionnaire-9 Score 0 10/08/2024 Last PHQ-9: Questionnaire Data Not on file 0 10/08/2024 Housing Stability Answer Date Recorded What is your housing situation today? I have israel veronica 10/08/[address] you li [...] documented as of this encounter Care Teams Compensation Programs Manager Relationship Specialty Start Date End Date Jessica Gonzalez MD [address] [place] [phone] PCP - General Family Medicine 07/17/18 documented as of this encounter
--- OUTSIDE RECORDS SUMMARY | 2025-03-31 20:54 | XMS_ITS | Clinical Summary ---
Author Organization [facility] Address [address] [place] [address] Phone Care Team Providers Care Meter Record Clerk Name Role Phone Jessica Gonzalez MD Primary Care Provider [phone] Allergies Active Allergy Reactions Criticality Noted Date [...] - Td or Tdap) 02/26/2022 02/27/2012, 12/31/2000 Depression Screening 07/17/2024 Hepatitis C Screening 09/24/2024 Medicare Annual Wellness Visit 09/24/2024 Osteoporosis Screening (Bone Density Screening) 09/24/2024 Social Influencers of Health Screening 09/24/2024 COVID-19 Vaccine ( season) 2025 06/30/2023, 09/16/2020, 08/26/2020 Influenza Vaccine [...] LAB CHEMISTRY METHOD 09/28/2024 6:41 AM EDT [facility] Potassium 3.7 3.5 - 5.5 mmol/L LAB CHEMISTRY METHOD 09/28/2024 6:41 AM [facility] Chloride 113(H) 96 - 110 mmol/L LAB CHEMISTRY METHOD 09/28/2024 6:41 AM [facility] CO2 23 21 - 32 mmol/L LAB CHEMISTRY METHOD 09/28/2024 6:41 AM [facility] Anion Gap 8 3 - 11 LAB CHEMISTRY METHOD 09/28/2024 6:41 AM EDT [facility] Glucose 93 70 - 100 mg/dL LAB CHEMISTRY METHOD 09/28/2024 6:41 AM EDT [facility] BUN 22 5 - 25 mg/dL LAB CHEMISTRY METHOD 09/28/2024 6:41 AM T [facility] Creatinine 1.03 0.50 - 1.10 mg/dL LAB CHEMISTRY METHOD 09/28/2024 6:41 AM EDT [facility] eGFR 55(L) >=60 mL/min/1. 73m2 LAB CHEMISTRY METHOD 09/28/2024 6:41 AM EDT [facility] Comment:Calculation based on the Chronic Kidney Disease Epidemiology Collaboration (CKD-EPI) equation refit without adjustment for race. BUN/Creatinine Ratio 21.4 LAB CHEMISTRY METHOD 09/28/2024 6:41 AM EDT [facility] Calcium 8.5 8.5 - 10.5 mg/dL LAB CHEMISTRY METHOD 09/28/2024 6:41 AM T [facility] Blood Venous blood specimen / Unknown Venipuncture / Unknown 09/28/2024 5:49 AM EDT 09/28/2024 6:02 AM EDT us Tu Douglas MD LAB BLOOD ORDERABLES Final Resul t [facility] [address] [place] [address], from Last 3 Months or Most Recently Relevant to [place] [id number] MEDICAID - [place] MEDICARE Advance Directives Documents on File Type Date Recorded Patient Senior Product Integrity Engineer Expl anation Advance Directives and Living Will [...] Lord Daughter Health Care Agent Care Teams Meter Record Clerk Relationship Specialty Start Date End Date Jessica Gonzalez MD [address] [place] [phone] PCP - General Internal Medicine 09/23/24
--- OUTSIDE RECORDS SUMMARY | 2025-03-31 20:54 | XMS_ITS | Encounter Summary ---
Author Organization [employer] Address [address] [address] Care Team Providers Care Chief Technology Officer Name Role Phone Jessica Gonzalez MD Primary Care Provider [phone] Reason for Referral * Imaging (Routine) - Closed Specialty Diagnoses / Procedures Referred By Shubham corrales Referred To Contact Radiology Diagnoses Decreased GFR Procedures US RENAL BI Julian Allen MD [address] [place] [address] Phone: tel: fax: [address] Phone: tel: fax: Referral ID Status Reason Start Date Expiration Date Visits Re quested Visits Authorized [id number] Closed 10/10/2024 10/10/2025 1 1 Encounter Details Date Type Department Care Team (Late st Contact Info) Description 10/10/2024 Orders Only [facility] [address] [place], [place] [phone] Julian Allen MD [address] [place], [place] [phone] Decreased GFR (Primary Dx) Social History Tobacco [...] as of this encounter Plan of Treatment Scheduled Orders Name Type Priority Associated Diagnoses [...] documented as of this encounter Care Teams Chief Technology Officer Relationship Specialty Start Date End Date Jessica Gonzalez MD [address] [place] [address] PCP - General Family Medicine 07/17/18 documented as of this encounter
--- OUTSIDE RECORDS SUMMARY | 2025-03-31 20:54 | XMS_ITS | Encounter Summary ---
Author Organization [employer] Address [address] [facility] 7t [place] [address] Care Team Providers Care Data Miner Name Role Phone Jessica Gonzalez MD Primary Care Provider [phone] Encounter Details Date Type Department Care Team (Late st Contact Info) Description 03/13/2023 Orders Only [facility]S [address] [place] [address] Lizabeth Armstrong LPN Social History Tobacco Use [...] (11/30/2023 2:50 PM EDT) Color Urine Yellow [facility] Appearance Urine Clear [facility] PH 5.0 5.0 - 9.0 [facility] Glucose Urine UA Negative Negative mg/dL [facility] Urine Blood Negative Negative [facility] Specific [place] - Urine 1.025 1.005 - 1.025 [facility] Urine Protein Negative Neg-Trace mg/dL [facility] Urine Ketones Trace Negative mg/dL [facility] Nitrite Urine Negative Negative [facility] Leukocyte Esterase Urine Trace(A) Negative [facility] RBC Urine 0-2 0 - 2 /HPF [facility] Urine WBC 0-5 0 - 5 /HPF [facility] Urine Squamous Epithelial Cell 3-5 0 - 2 /HPF [facility] Urine Bacteria None Seen None Seen [facility] Hyaline Casts, Urine 0-2 0 - 2 /LPF [facility] 11/30/2023 2:50 PM EDT 11/30/2023 7:49 PM EDT Narrative [facility] - 11/30/2023 8:35 PM EDT [id number], Clean Catch Jessica Gonzalez MD LAB URINE ORDERABLES Final Re sult Performing Organization Address [facility] Co de Phone Number [facility] [address] [place] [address] [phone] * T4, Free (11/30/2023 2:43 PM EDT) Free T4 (Free Thyroxine) 1.44 0.71 - 1.85 ng/dL [facility] 11/30/2023 2:43 PM EDT 11/30/2023 5:58 PM EDT us Jessica Gonzalez MD LAB BLOOD ORDERABLES Final Re sult Performing Organization Address [facility] de Phone Number [facility] [address] [place] [address] [phone] documented in this encounter Visit Diagnoses Not on filedocumented in this encounter Care Teams Data Miner Relationship Specialty Start Date End Date Jessica Gonzalez MD [address] [place] [phone] PCP - General Family Medicine 07/17/18 documented as of this encounter
--- OUTSIDE RECORDS SUMMARY | 2025-03-31 20:54 | XMS_ITS | Clinical Summary ---
Author Organization [facility] Address [address] [address] Phone Care Team Providers Care Electric Cell Tender Name Role Phone Jessica Gonzalez MD Primary [...] Encounters Date Type Department Care Team Description 03/22/2025 Orders Only [facility] [address] [phone] Jarad Reina MD Stage 3a chronic kidney disease (HCC) from Last 3 Months Family History Medical [...] Office Visit [facility] [address] [phone] Jarad Reina MD [address] [phone] Health Maintenance Due Date Last Done Comments Influenza Vaccine (#1) 2025 4, 06/30/2023, 06/04/2022, Additional history exists Pneumococcal Vaccine: 50+ Years Completed 05/13/2015, 12/12/2012 Hepatitis B Vaccine Aged Out No longe r eligible based on patient's age to complete this topic Procedures Procedure Name Priority Date/Time Associated Diagnosis Comments ALBUMIN, URINE, RANDOM Routine 03/31/2025 5:06 PM EDT URINALYSIS (HC) Routine 03/31/2025 5:06 PM EDT PROTEIN / CREATININE RATIO, URINE Routine 03/31/2025 5:06 PM EDT Stage 3a chronic kidney disease (HCC) CALCIUM Routine 03/31/2025 3:56 PM EDT CREATININE, BLOOD Routine 03/31/2025 3:5 6 PM EDT BUN Routine 03/31/2025 3:56 PM EDT ELECTROLYTE PANEL Routine 03/31/2025 3:5 6 PM EDT URIC ACID Routine 03/31/2025 3:56 PM EDT Stage 3a chronic kidney disease (HCC) PHOSPHATE ( PHOSPHORUS) Routine 03/31/2025 3:56 PM EDT Stage 3a chronic kidney disease (HCC) MAGNESIUM Routine 03/31/2025 3:56 PM EDT Stage 3a chronic kidney disease (HCC) CBC AND DIFFERENTIAL Routine 03/31/2025 3:56 PM EDT Stage 3a chronic kidney disease (HCC) from Last 3 Months Results * (ABNORMAL) Urinalysis (03/31/2025 5:06 PM EDT) Color Urine Yellow See orde r comments Appearance Urine Clear See order comments pH Urine 5.5 5.0 - 9.0 See order comments Glucose Urine Negative Negative mg/dL See order comments Blood, Urine Negative Negative See ord er comments Specific [place] Urine >=1.030(H) 1.005 - 1.025 See order comments Protein Urine Negative Neg-Trace mg/dL See order comments Ketones, Urine Trace Negative mg/dL See order comments Nitrite, Urine Negative Negative See o rder comments Leukocyte Esterase Urine Negative Negative See order comments 03/31/2025 5:06 PM EDT 03/31/2025 5:06 PM EDT Narrative [place] - 03/31/2025 5:35 PM EDT Urine, Clean Catch us Jarad Reina MD LAB HISTORICA [id number] RESULTS Final Result Performing Organization Address [facility] de Phone Number [place] See order comments [place] [address] * (ABNORMAL) Protein, Total, Random Urine w/Creatinine (Protein/Creat Ratio) (03/31/2025 5:06 PM EDT) Protein Urine Random 14(H) <12 mg/dL See order comments Protein/Creatin ine Ratio, Urine 0.05 <0.2 See order comments Comment: The spot urine protein:creatinine ratio may increase to 0.3 during normal . Urine Urine specimen obtained by clean catch procedure / Unknown 03/31/2025 5:06 PM EDT 03/31/2025 5:06 PM EDT us Jarad Reina MD LAB URINE ORDERABLES Final Result Performing Organization Address [facility] Phone Number [place] See order comments [place] [address] * Albumin, urine, random (03/31/2025 5:06 PM EDT) Creatinine, Urine 284.38 mg/dL Se e order comments Urine Microalbumin 16.0 mg/L See order comments Microalbumin/Crea tinine Ratio 5.6 <30 ug/mg cr See order comments Comment: Albumin/Creatinine Ratio Reference Ranges: Normal: < 30 ug/mg creatinine Microalbuminuria: 30 - 300 ug/mg creatinine Clinical Albuminuria: > 300 ug/mg creatinine 03/31/2025 5:06 PM EDT 03/31/2025 5:06 PM EDT us Jarad Reina MD LAB URINE ORDERABLES Final Result Performing Organization Address [facility] de Phone Number [place] See order comments [place] [address] * Creatinine (03/31/2025 3:56 PM EDT) Pathologist [facility] Creatinine Serum 1.24 0.5 - 1.4 mg/dL See order comments eGFR (Calc) 42 See orde r comments Comment: Chronic Kidney Disease: Estimated GFR < 60 mL/min/1.73m2 Severe Kidney Disease: Estimated GFR < 15 mL/min/1.73m2 03/31/2025 3:56 PM EDT 03/31/2025 3:56 PM EDT us Jarad Reina MD LAB BLOOD ORDERABLES Final Result [place] See order comments [place] [address] * (ABNORMAL) CBC and Differential (03/31/2025 3:56 PM EDT) Pathologist [facility] WBC 8.4 4.8 - 10.8 X10*3/uL See order comments RBC 4.14(L) 4.20 - 5.50 X10*6/uL See order comments Hgb 11.0(L) 12.0 - 16.0 g/dl See order comments Hematocrit 34.8(L) 37.0 - 47.0 % See order comments MCV 84.1 80.0 - 98.0 fL See order comments MCH 26.6(L) 27.0 - 33.0 pg See order comments MCHC 31.6 31.0 - 35.0 g/dl See order comments RDW 17.3(H) 11.0 - 16.0 % See order comments Platelets 299 160 - 400 X10*3/uL See order comments MPV 10.2 9.4 - 12.3 fL See order comments Neutrophils % Auto 72.9 45 - 73 % See order comments Immature Granulocytes 0.4 0.0 - 0.4 % See order comments Lymphocytes Relative 17.5(L) 20 - 40 % See order comments Monocytes 8.8 2 - 11 % See order comments Eosinophils Relative 0.0 0 - 4 % See order comments Basophils Relative 0.4 0 - 2 % See order comments nRBC Count 0.0 0.0 - 0.2 /100WBC See order comments Neutrophils Absolute 6.1 2.0 - 8.3 x10*3/uL See order comments Immature Grans (Absolute) 0.03 0.00 - 0.03 X10*3/uL See order comments Lymphocytes Absolute 1.5 1.2 - 4.9 X10*3/uL See order comments Monocytes Absolute 0.7 0.1 - 1.2 X10*3/uL See order comments Eosinophils Absolute 0.0 0.0 - 0.4 X10*3/uL See order comments Basophils Absolute 0.0 0.0 - 0.2 X10*3/uL See order comments NRBC Absolute 0.000 0.0 - 0.012 X10*3/uL See order comments Blood Venous blood / Unknown 03/31/2025 3:56 PM EDT 03/31/2025 3:56 PM EDT us Jarad Reina MD LAB BLOOD ORDERABLES Final Result Performing Organization Address [facility] de Phone Number [place] See order comments [place] [address] * (ABNORMAL) Uric Acid (03/31/2025 3:56 PM EDT) Uric Acid 6.0(H) 2.4 - 5.7 mg/dL See order comments Blood Venous blood / Unknown 03/31/2025 3:56 PM EDT 03/31/2025 3:56 PM EDT us Jarad Reina MD LAB BLOOD ORDERABLES Final Result Performing Organization Address [facility] Co de Phone Number [place] See order comments [place] [address] * (ABNORMAL) BUN (03/31/2025 3:56 PM EDT) BUN 23(H) 9 - 16 mg/dL See order comments 03/31/2025 3:56 PM EDT 03/31/2025 3:56 PM EDT us Jarad Reina MD LAB BLOOD ORDERABLES Final Result Performing Organization Address [facility] Co de Phone Number [place] See order comments [place] [address] * Phosphorus (03/31/2025 3:56 PM EDT) Pathologist [facility] Phosphorus, Serum 3.2 2.7 - 4.5 mg/dL See order comments Blood Venous blood / Unknown 03/31/2025 3:56 PM EDT 03/31/2025 3:56 PM EDT us Jarad Reina MD LAB BLOOD ORDERABLES Final Result [place] See order comments [place] [address] * Magnesium (03/31/2025 3:56 PM EDT) [facility] Magnesium 2.2 1.6 - 2.6 mg/dL See order comments Blood Venous blood / Unknown 03/31/2025 3:56 PM EDT 03/31/2025 3:56 PM EDT Jarad Reina MD LAB BLOOD ORDERABLES Final Result Performing Organization Address [facility]/ZIP Co de Phone Number [place] See order comments [place] [address] * Calcium (03/31/2025 3:56 PM EDT) [facility] Calcium 9.3 8.4 - 10.2 mg/dL See order comments 03/31/2025 3:56 PM EDT 03/31/2025 3:56 PM EDT Jarad Reina MD LAB BLOOD ORDERABLES Final Result Performing Organization Address [facility]/ZIP Co de Phone Number [place] See order comments [place] [address] * (ABNORMAL) Electrolyte panel (03/31/2025 3:56 PM EDT) Pathologist [facility] Sodium 144 135 - 145 mmol/L See order comments Potassium 4.0 3.3 - 5.1 mmol/L See order comments Chloride 112(H) 96 - 108 mmol/L See order comments Bicarbonate (CO2) 25 22 - 29 mmol/L See order comments Anion Gap 11(L) 12 - 20 See order comments 03/31/2025 3:56 PM EDT 03/31/2025 3:56 PM EDT us Jarad Reina MD LAB BLOOD ORDERABLES Final Result [place] See order comments [place] [address] from Last 3 Months Insurance Medicare Medicaid [place] Care Teams Electric Cell Tender Relationship Specialty Start Date End Date Jessica Gonzalez MD [address] [place] [address] PCP - General Internal Medicine 10/28/24
--- OUTSIDE RECORDS SUMMARY | 2025-03-31 20:54 | XMS_ITS | Encounter Summary ---
Author Organization [facility] Address [address] [address] Phone Care Team Providers Care Waste Machine Operator Name Role Phone Jessica Gonzalez MD Primary Care Provider Unav ailable Encounter Details Date Type Department Care Team (Late Contact Info) Description 03/22/2025 Orders Only [facility] [address] [place] [phone] Jarad Reina MD [address] [place] [phone] Stage 3a chronic kidney disease (HCC) Social History Tobacco Use Types Packs/Day Years Used Date Smoking Tobacco: Former Cigarettes Smokeless Tobacco: Former Alcohol Use Standard Drinks/Week Comments Never 0 (1 standard drink = 0.6 oz pur e alcohol) Comments Unknown Sex and Gender Information Value Date Recorded Sex Assigned at Not on file Legal Sex Female 1:20 PM EDT Gender Identity Not on file Sexual Orientation Not on file documented as of this encounter Plan of Treatment Upcoming Encounters Date Type Department Care Team (Late st Contact Info) Description 04/01/2025 4:00 PM EDT [facility] [address] [address] Jarad Reina MD [address] [place] [phone] documented as of this encounter Procedures Procedure Name Priority Date/Time Associated Diagnosis Comments URINALYSIS (HC) Routine 03/31/2025 5:06 PM EDT PROTEIN / CREATININE RATIO, URINE Routine 03/31/2025 5:06 PM EDT Stage 3a chronic kidney disease (HCC) ALBUMIN, URINE, RANDOM Routine 03/31/2025 5:06 PM EDT CREATININE, BLOOD Routine 03/31/2025 3:5 6 PM EDT CBC AND DIFFERENTIAL Routine 03/31/2025 3:56 PM EDT Stage 3a chronic kidney disease (HCC) URIC ACID Routine 03/31/2025 3:56 PM EDT Stage 3a chronic kidney disease (HCC) BUN Routine 03/31/2025 3:56 PM EDT PHOSPHATE ( PHOSPHORUS) Routine 03/31/2025 3:56 PM EDT Stage 3a chronic kidney disease (HCC) MAGNESIUM Routine 03/31/2025 3:56 PM EDT Stage 3a chronic kidney disease (HCC) CALCIUM Routine 03/31/2025 3:56 PM EDT ELECTROLYTE PANEL Routine 03/31/2025 3:5 6 PM EDT documented in this encounter Results * Albumin, urine, random (03/31/2025 5:06 PM [...] EDT 03/31/2025 5:06 PM EDT us Jarad Paramasivam MD LAB URINE ORDERABLES Final Result Performing Organization Address [facility] de Phone Number [place] See order comments [place] [address] * (ABNORMAL) Urinalysis (03/31/2025 5:06 PM EDT) Color Urine Yellow See orde r comments Appearance Urine Clear See order comments pH Urine 5.5 5.0 - 9.0 See order comments Glucose Urine Negative Negative mg/dL See order comments Blood, Urine Negative Negative See ord er comments Specific [place] Urine >=1.030(H) 1.005 - 1.025 See order comments Protein Urine Negative Neg-Trace mg/dL See order comments Ketones, Urine Trace Negative mg/dL See order comments Nitrite, Urine Negative Negative See o rder comments Leukocyte Esterase Urine Negative Negative See order comments 03/31/2025 5:06 PM EDT 03/31/2025 5:06 PM EDT Narrative [place] - 03/31/2025 5:35 PM EDT Urine, Clean Catch Jarad Reina MD LAB HISTORICA [id number] RESULTS Final Result Performing Organization Address [facility] Phone Number [facility] See order comments [place] [address] * (ABNORMAL) Protein, Total, Random Urine w/Creatinine [...] URINE ORDERABLES Final Result Performing Organization Address [facility] de Phone Number [facility] See order comments [place] [address] * Calcium (03/31/2025 3:56 PM EDT) Calcium 9.3 8.4 - 10.2 mg/dL See order comments 03/31/2025 3:56 PM EDT 03/31/2025 3:56 PM EDT us Jarad Reina MD LAB BLOOD ORDERABLES Final Result Performing Organization Address [facility] Co de Phone Number [facility] See order comments [place] [address] * Creatinine (03/31/2025 3:56 PM EDT) Creatinine Serum 1.24 0.5 - 1.4 mg/dL See order comments eGFR (Calc) 42 See orde r comments Comment: Chronic Kidney Disease: Estimated GFR < 60 mL/min/1.73m2 Severe Kidney Disease: Estimated GFR < 15 mL/min/1.73m2 03/31/2025 3:56 PM EDT 03/31/2025 3:56 PM EDT us Jarad Reina MD LAB BLOOD ORDERABLES Final Result Performing Organization Address [facility] Co de Phone Number [facility] See order comments [place] [address] * (ABNORMAL) BUN (03/31/2025 3:56 PM EDT) BUN 23(H) 9 - 16 mg/dL See order comments 03/31/2025 3:56 PM EDT 03/31/2025 3:56 PM EDT us Jarad Reina MD LAB BLOOD ORDERABLES Final Result Performing Organization Address [facility] Co de Phone Number [place] See order comments [place] [address] * (ABNORMAL) Electrolyte panel (03/31/2025 3:56 PM EDT) Sodium 144 135 - 145 mmol/L See [...] BLOOD ORDERABLES Final Result Performing Organization Address [facility] Co de Phone Number [place] See order comments [place] [address] * (ABNORMAL) Uric Acid (03/31/2025 3:56 PM EDT) Uric Acid 6.0(H) 2.4 - 5.7 mg/dL See order comments Blood Venous blood / Unknown 03/31/2025 3:56 PM EDT 03/31/2025 3:56 PM EDT us Jarad Reina MD LAB BLOOD ORDERABLES Final Result Performing Organization Address [facility] Phone Number [place] See order comments [place] [address] * Phosphorus (03/31/2025 3:56 PM EDT) Phosphorus, Serum 3.2 2.7 - 4.5 mg/dL See order comments Blood Venous blood / Unknown 03/31/2025 3:56 PM EDT 03/31/2025 3:56 PM EDT us Jarad Reina MD LAB BLOOD ORDERABLES Final Result Performing Organization Address [facility] de Phone Number [facility] See order comments [place] [address] * Magnesium (03/31/2025 3:56 PM EDT) Magnesium 2.2 1.6 - 2.6 mg/dL See order comments Blood Venous blood / Unknown 03/31/2025 3:56 PM EDT 03/31/2025 3:56 PM EDT us Jarad Reina MD LAB BLOOD ORDERABLES Final Result [place] See order comments [place] [address] * (ABNORMAL) CBC and Differential (03/31/2025 3:56 PM EDT) WBC 8.4 4.8 - 10.8 X10*3/uL See [...] order comments [place] [address] documented in this encounter Visit Diagnoses Diagnosis Stage 3a chronic kidney disease (HCC) documented in this encounter Care Teams Waste Machine Operator Relationship Specialty Start Date End Date Jessica Gonzalez MD [address] [place] [address] PCP - General Internal Medicine 10/28/24 documented as of this encounter
--- OUTSIDE RECORDS SUMMARY | 2025-03-31 20:54 | XMS_ITS | Encounter Summary ---
Author Organization [employer] Address [address] [facility] [address] [place] [address] Care Team Providers Care Blade Grader Operator Name Role Phone Jessica Gonzalez MD Primary Care Provider [phone] Reason for Visit * Reason Comments Med Refill Encounter Details Date Type Department Care Team ([facility] st Contact Info) Description 06/11/2023 Refill [facility] [address] [place] [address] Jessica Gonzalez MD [address] [place], [place] [phone] Mixed hyperlipidemia Social History Tobacco Use Types [...] hyperlipidemia documented in this encounter Care Teams Blade Grader Operator Relationship Specialty Start Date End Date Jessica Gonzalez MD [address] [place] [address] PCP - General Family Medicine 07/17/18 documented as of this encounter
--- OUTSIDE RECORDS SUMMARY | 2025-03-31 20:54 | XMS_ITS | Encounter Summary ---
Author Organization [employer] Address [address] [facility] [address] [place] [address] Care Team Providers Care Assistant Vice President Name Role Phone Jessica Gonzalez MD Primary Care Provider [phone] Encounter Details Date Type Department Care Team (Late st Contact Info) Description 10/16/2024 Orders Only [facility] [address] [place] [address] Provider, MD Cesar Social History Tobacco Use [...] documented as of this encounter Care Teams Assistant Vice President Relationship Specialty Start Date End Date Jessica Gonzalez MD [address] [place] [id number] PCP - General Family Medicine 07/17/18 documented as of this encounter
--- OUTSIDE RECORDS SUMMARY | 2025-03-31 20:54 | XMS_ITS | Encounter Summary ---
Author Organization [employer] Address [address] [facility] [address] [place] [address] Care Team Providers Care Collarette Separator Name Role Phone Jessica Gonzalez MD Primary Care Provider [phone] Reason for Visit * Reason Onset Date Comments Appointment Request 10/17/2024 Encounter Details Date Type Department Care Team (Late st Contact Info) Description 10/17/2024 Telephone [facility] [address] [place] [address] Jessica Gonzalez MD [address] [place], [place] [phone] Appointment Request Social History Tobacco Use Types [...] done on her kidney. Contact pt at [phone] documented in this encounter Plan of Treatment Not on file documented as of this encounter Visit Diagnoses Not on filedocumented in this encounter Additional Health Concerns Assessment Noted Time PHQ-9 Depression Total Score: 0 10/09/19 2:16 PM EDT documented as of this encounter Care Teams Collarette Separator Relationship Specialty Start Date End Date Jessica Gonzalez MD [address] [place] [address] PCP - General Family Medicine 07/17/18 documented as of this encounter
== END 2025-03-31 15:30 | disposition home or self-care (01) ==
LOC: HO.LAB 15:29
PROVIDERS: PCP Pediatrics; Visit Provider Internal Medicine
DX: N18.31 Chronic kidney disease, stage 3a (principal)
CPT/HCPCS: 36415; 80051; 81003; 82043; 82310; 82565; 82570; 83735; 84100; 84156; 84520; 84550; 85025